=== PATIENT | male | born 1935 | race Caucasian/White ===

== ENCOUNTER 2018-02-11 10:25 | Emergency (ER) | payer MEDICARE ==
[2018-02-11] MEDS ORDERED: IPRATROPIUM/ALBUTEROL SULFATE 3 ML AMPUL.NEB NEB ONE (11:29)
--- NOTE | 2018-02-11 11:42 | ED Physician Documentation ---
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 in [facility]. . pt appears lethargic and inconsistent in answers. pcp=DR [facility]. Family also says dietary very non compliant plus smokes 2-4 pk cigs per day eats candy bars w/diabetes along w/food non compliant. pt says no bm for 2-3 days. family relates has eaten 12 glazed donuts and one time and eats up to 3-4 candy bars instead of regular diabetic diet-then takes xs insulin to try cover. seldom eats diabetic like diet Onset: days ago (2) Last known Well Date: 01/30/18 Last Known Well Time: 12:12 Last known Well Code/Unknown Code: Unknown (CHRONIC DETERIORATION-IMPOSSIBLE TO DETERMINE EXACT TIME-DATE AND TIME A WILD ESTIMATE. PT HAD CHRONIC PROGRESSIVE DETERIORATION OVER MONTHS/YEARS) Character of Altered Mental Status: confused (slightly-perhaps xs narcotic. family says pt gave xs oxycodone and she was adm [facility] due to overdose) Context: infection (chronic cellulitis legs along w/ diabetic ner) Cognition is Usually: alert but confused Associated Symptoms: trouble breathing (chronic dt copd), abdominal pain. denies: nausea, vomiting - ROS EYES/ENT: problems with vision, other (as above) CVS/RESP: shortness of breath, cough GI/: abdominal pain MS/SKIN/LYMPH: joint pain, leg swelling, rash NEURO/PSYCH: headache - PAST HX Past History: confusion, diabetes Type 1, other (copd htn chf cellulitis legs -chronic) Allergies/Adverse Reactions: Allergies Allergy/AdvReac Type Severity Reaction Status Date / Time Iodinated Contrast Media - Allergy Mild Verified 02/11/18 11:12 IV Dye [IV Dye, Iodine Containing Contrast ] enoxaparin sodium Allergy Verified 02/11/18 11:12 [From Lovenox] Home Medications: Ambulatory Orders Medication Instructions Recorded Levothyroxine Sodium [Synthroid] 75 mcg PO D 05/28/13 Mirtazapine 15 mg PO D 05/28/13 Multivit-Min/FA/Lycopene/Lut 1 each PO 05/28/13 [Centrum Silver Tablet] Nystatin Powder [Nystop] 0 gm TP 05/28/13 Carbidopa/Levodopa [Carbidopa-Levo 1 tab PO 02/11/18 25-100 mg Odt] Gabapentin 100 mg PO 02/11/18 Insulin Regular, Human [Humulin R 02/11/18 U-500] Melatonin 3 mg PO D 02/11/18 Pantoprazole Sodium [Protonix] 40 mg PO 02/11/18 Prednisone 10 mg PO 02/11/18 Sertraline HCl [Zoloft] 100 mg PO D 02/11/18 Tiotropium [place] [Spiriva] 18 mcg INH 02/11/18 - SOCIAL HX Smoking History: greater than 1 pack/day Alcohol Use: none (prev very heavy per family) Drug Use: other (non compliant w/ percocet for joint leg pain) - FAMILY HX Family History: none - VITAL SIGNS Vital Signs: Vital Signs Temp Pulse Resp BP Pulse Ox 97.4 F L 68 28 H 181/102 95 02/11/18 10:26 02/11/18 10:26 02/11/18 10:26 02/11/18 10:26 02/11/18 10:26 - REVIEWED ASSESSMENTS Nursing Assessment Reviewed: Yes Vitals Reviewed: Yes ED Results Lab/Radiology - Lab Results Lab Results: Lab Results 02/11/18 02/11/18 12:05 12:05 WBC 7.80 K/ul K/ul (4.00-12.00) RBC 3.84 M/ul L M/ul (3.90-5.20) Hgb 11.9 g/dL L g/dL (12.0-18.0) Hct 36.0 % L % (37.0-53.0) MCV 93.6 fl fl (80.0-100.0) MCH 31.0 pg pg (28.0-34.0) MCHC 33.1 g/dL g/dL (30.0-36.0) RDW 15.1 % H % (11.3-14.3) Plt Count 233 K/mm3 K/mm3 (130-400) Neut % (Auto) 81.2 % H % (39.0-79.0) Lymph % (Auto) 10.8 % L % (16.0-50.0) [place] % (Auto) 4.6 % % (0.0-11.0) Eos % (Auto) 0.8 % % (0.0-6.8) Baso % (Auto) 0.5 (0.0-1.5) Neut # (Auto) 6.3 # k/uL # k/uL (1.4-7.7) Lymph # (Auto) 0.8 # k/uL # k/uL (0.6-4.0) [place] # (Auto) 0.4 # k/uL # k/uL (0.0-0.9) Eos # (Auto) 0.1 # k/uL # k/uL (0.0-0.6) Baso # (Auto) 0.0 # k/uL # k/uL (0.0-0.5) Reactive Lymphs % 2.0 % % (0.0-5.0) Reactive Lymphs # 0.2 # k/uL # k/uL (0.0-0.8) Sodium 140 mmol/L mmol/L (136-145) Potassium 4.6 mmol/L mmol/L (3.5-5.1) Chloride 100 mmol/L mmol/L (98-107) Carbon Dioxide 25 mmol/L mmol/L (22-30) BUN 51 mg/dL H mg/dL (9-20) Creatinine 1.80 mg/dL H mg/dL (0.66-1.25) Estimated Creat Clear 53 Est GFR ( Amer) 47 L (60 - ) Est GFR (Non-Af Amer) 39 L (60 - ) Glucose 216 mg/dL H mg/dL (74-106) Calcium 8.8 mg/dL mg/dL (8.4-10.2) Total Bilirubin 1.2 mg/dL mg/dL (0.2-1.3) AST 36 U/L U/L (15-46) ALT 35 U/L U/L (13-69) Alkaline Phosphatase 111 U/L U/L (38-126) Total Protein 7.7 g/dL g/dL (6.3-8.2) Albumin 4.0 g/dL g/dL (3.5-5.0) - Radiology Radiology Impressions: CXR CONGESTION NO APPARENT ACUTE PROCESS. ABD REV XS GAS [id number] PT HAS HAD 2 LARGE BMS SINCE IN ED - Orders Orders: ED Orders Category Date Time Status IV Started NOW Care 02/11/18 12:25 Active ABD SERIES PA CHEST [RAD] Stat Exams 02/11/18 Completed CBC/PLATELET/DIFF Routine Lab 02/11/18 12:05 Completed CMP Routine Lab 02/11/18 12:05 Completed DRUG SCREEN URINE MEDICAL ONLY Routine Lab 02/11/18 Ordered URINALYSIS Routine Lab 02/11/18 Ordered Acetaminophen [Tylenol Extra Strength] Med 02/11/18 14:51 Discontinued 500 mg .ROUTE .STK-MED ONE Ipratropium/Albuterol Sulfate [Duoneb] Med 02/11/18 11:29 Discontinued 3 ml NEB NOW ONE EKG WITH COMPARISON Stat Ther 02/11/18 Ordered Altered Mental Status Physical - Physical Exam General Appearance: moderate distress, lethargic Neuro/Psych: headache alert Peripheral Exam: motor nml, sensation nml, reflexes nml, other (marked pain w/ palp cellulitis lower legs-no marked edema) HEENT: SACHA, EOM's intact Respiratory: wheezes, rales, rhonchi. No: breath sounds normal CVS: reg rate & rhythm, heart sounds normal Abdomen: tenderness. No: non-tender, no distention Skin: warm/dry, normal color Extremities: normal range of motion (no pronator drift equal hand greige mender moves lower ext equally but weak difficult to move by self). No: non-tender Discharge Clincal Impression: ADVANCED COPD , MEDS NONCOMPLIANCE, CONSTIPATION RESOLVED, MARKEDLY UNCONTROLLED DIABETIC DIET, PERIPHERAL VASCULAR DISEASE, SEVERE DIABETIC NEUROPATHY AND [place] DM, LOWER ETREMITY CHRONIC CELLULITIS, RECURRENT AMS SECONDARY TO MEDS NON COMP Referrals: Prashant Sy MD [Primary Care Provider] - 2 Days Comments: [facility] DECLINED ADMISSION-REC [facility] PATIENT. OFFERED ADM OBS HERE W/FURTHUR DISPOSITION =- PT DECLINED Condition: Fair Disposition: 01 HOME, SELF-CARE Decision to Admit: NO Decision Time: 15:28
[2018-02-11 12:26] LABS: BASOPHILS % 0.5 (0.0-1.5); EOSINOPHILS % 0.8 % (0.0-6.8); MEAN CORPUSCULAR VOLUME 93.6 fl (80.0-100.0); MONOCYTES % 4.6 % (0.0-11.0); NEUTROPHILS # 6.3 # k/uL (1.4-7.7)
--- NOTE | 2018-02-11 13:19 | Diagnostic Imaging Report ---
ZEYNEP HECK [facility] [address] [facility].[address] [address] Report Submission Date: Feb 11, 2018 1:16:52 PM CDT Patient Study Name: KEILA WARNER Date: Feb 11, 2018 12:34:08 PM CDT Modality Type: DX Gender: M Description: ABDOMEN,CHEST : 37 Institution: [facility] Physician: ZEYNEP HECK Chest and abdomen Clinical history short of breath and constipation Technique supine abdomen and upright chest Findings: Large amount of retained fecal material in the colon. Lumbar spondylosis is present. No mass or free air is seen. Arthritic changes are present in the hips. The heart is enlarged. The aorta is tortuous. No acute infiltrate is seen. The lung knight are hyperinflated. Surgical clips of cholecystectomy are present in the right upper quadrant. Impression: Hyperinflation Cardiomegaly Aortic atherosclerosis Cholecystectomy Constipation Electronically signed on Feb 11, 2018 1:16:52 PM CDT by: Max MONSALVE
[2018-02-11] MEDS ORDERED: ACETAMINOPHEN 500 MG TABLET ONE (14:51)
[2018-02-11] MEDS ORDERED: ACETAMINOPHEN 500 MG TABLET PO ONE (14:55)
[2018-02-11 16:55] VITALS: BP 153/73
[2018-02-12 07:22] LABS: OCCULT BLOOD,URINE TRACE-LYSED (NEGATIVE); PH URINE 5.5 (5.0 - 8.0)
[2018-02-12 07:23] LABS: CANNABINOIDS NEGATIVE ng/mL (< 50); METHYLENEDIOXYMETHAMPHETAMINE NEGATIVE ng/mL (<500)
== END 2018-02-11 15:00 | disposition home or self-care (01) ==
LOC: ED 10:25
DX: J44.9 Chronic obstructive pulmonary disease, unspecified (principal); E11.65 Type 2 diabetes mellitus with hyperglycemia; E11.40 Type 2 diabetes mellitus with diabetic neuropathy, unspecified; L03.116 Cellulitis of left lower limb; Z91.14 Patient's other noncompliance with medication regimen
CPT/HCPCS: 74022; 80053; 81002; 85025; 93005; G0481; 80377; 94640; 99283; 99284; S1016

== ENCOUNTER 2018-11-14 20:32 | Inpatient (IN) | payer MEDICARE ==
[2018-11-14] MEDS ORDERED: 0.9 % SODIUM CHLORIDE 1,000 ML IV SCH (21:00)
--- NOTE | 2018-11-14 21:07 | ED Physician Documentation ---
Fall - HISTORIAN Historian: patient, child - [facility] Chief Complaint: Fall Additional Information: TANGLED UP IN WALKER FELL W/ LAC RT LOWER LEG PLUS HYPOTENSION AND SYNCOPE IN AMBULANCE Onset: just prior to arrival Where: home Context: lost balance (entangled in walker) r: mild, moderate Associated Symptoms:: no loss of consciousness Location of Pain/Injury: lower extremity. denies: head, neck, face, chest, abdomen, upper back, mid back, lower back Injury to Right Extremity: leg (lac mikd calf lateral) Injury to Left Extremity: none - ROS CONST: other (falls occasionally) NEURO: depression MS/SKIN/LYMPH: denies: weakness, numbness, neck pain, back pain, ankle swelling, leg swelling EYES/ENT: none CVS/RESP: denies: shortness of breath GI/: denies: problems urinating, nausea, vomiting - PAST HX Past History: diabetes Type 1, other (chf depression lo thryoid gerd copd). denies: cardiac disease Allergies/Adverse Reactions: Allergies Allergy/AdvReac Type Severity Reaction Status Date / Time Iodinated Contrast- Oral and Allergy Mild Verified 11/14/18 22:41 IV Dye [IV Dye, Iodine Containing Contrast ] enoxaparin sodium Allergy Verified 11/14/18 22:41 [From Lovenox] IV Dye, Iodine Containing Allergy Mild Uncoded 11/14/18 22:41 Contrast Home Medications: Ambulatory Orders Medication Instructions Recorded Levothyroxine Sodium [Synthroid] 75 mcg PO D 05/28/13 Mirtazapine 15 mg PO D 05/28/13 Multivit-Min/FA/Lycopene/Lut 1 each PO 05/28/13 [Centrum Silver Tablet] Nystatin Powder [Nystop] 0 gm TP 05/28/13 Carbidopa/Levodopa [Carbidopa-Levo 1 tab PO 02/11/18 25-100 mg Odt] Insulin Regular, Human [Humulin R 02/11/18 U-500] Melatonin 3 mg PO D 02/11/18 Pantoprazole Sodium [Protonix] 40 mg PO 02/11/18 Prednisone 10 mg PO 02/11/18 Sertraline HCl [Zoloft] 100 mg PO D 02/11/18 Tiotropium [place] [Spiriva] 18 mcg INH 02/11/18 - SOCIAL HX Smoking History: non-smoker, less than 1 pack/day Alcohol Use: none Drug Use: none - FAMILY HX Family History: no significant history - VITAL SIGNS Vital Signs: Vital Signs Temp Pulse Resp BP Pulse Ox 153/73 02/11/18 16:52 - REVIEWED ASSESSMENTS Nursing Assessment Reviewed: Yes Vitals Reviewed: Yes Procedures Wound Location: lower extremity Wound's Depth, Shape: superficial, flap Wound Explored: LAC APPROX 5 IN LONG W/FLAP Betadine Prep?: Yes Suture Size/Type: 4:0 Layer Closure?: No Sterile Dressing Applied?: Yes Splint Applied?: No Sling Applied?: No Progress - Results/Orders Results/Orders: PDT BLOOD PRESURE STABILIZED AROUND 100+ SYSTOLIC AFTER IV'S. HE BECAME MORE ALERT AND CONVERSIVE. HE HAD APPARENT SYNCOPE IN AMBULANCE AND AGAIN WHEN WE TRANS TO COMMODE HIS BP ON ARRIVAL WAS 50'S ON ARRIVAL GRADUALLY INCREASING W/ FLUIDS. HE IS ON SEVERAL MEDS BUT WE DO NOT KNOW DOSAGE THERE FORE WILL HOLD TILL FAMILY CAN BRING THEM IN IN THE AM ED Results Lab/Radiology - Orders Orders: ED Orders Category Date Time Status CBC/PLATELET/DIFF Routine Lab 11/14/18 Ordered CMP Routine Lab 11/14/18 Ordered URINALYSIS Routine Lab 11/14/18 Ordered 0.9 % Sodium Chloride [Normal Saline] 1,000 ml Med 11/14/18 21:00 Ordered IV 1T Oxygen Daily Oxygen 11/14/18 21:00 Ordered EKG WITH COMPARISON Stat Ther 11/14/18 Ordered EKG WITH COMPARISON Stat Ther 11/14/18 Stop Req Fall Physical Exam - Physical Exam General Appearance: alert (but lethargic reported locon way into ed-EMS), moderate distress Head: non-tender, no swelling, no obvious injury Neck: non-tender, painless ROM, trachea midline Eye: SACHA, EOMI ENT: nml external inspection Resp/CVS: chest non-tender, no ecchymosis, breath sounds nml, no resp. distress, heart sounds nml. No: rib tenderness, subcutaneous emphysema Abdomen: soft, non-tender Neuro: oriented x3, sensation nml, motor nml, mood/affect nml, depressed mo od/affect, other (has had noct timemeds plushypotensive). No: unsteady gait (pt got syncopal when up to commode dt hypotension) Skin: color nml, no rash. No: cyanosis, diaphoresis, pallor, ecchymosis, skin rash Extremities: other (4 inch tear lac rt lower lat leg lmid calf level) - [place] Coma Score Eyes Open: To Voice Motor: Localizes to Pain Discharge Clincal Impression: HYPOTENSION W/ ORTHOSTATIC SYNCOPE, HYPOTENSION W/ ORTHOSSTATIC SYNCOPE, LACERATION RT LOWER LAT LEG, HX PREV DVT RT LEG, HX DM CHF DEPRESSION HYPOTHRYOID , HX GERD COPD Referrals: Prashant Sy MD [Primary Care Provider] - 2 Days Comments: DOSAGE NOT AVAILABLE-FAMILY WILL BRING THEM IN EARLY AM. CALLED DR RANDHAWA FOR ADM ORDERS Condition: Fair Disposition: 02 XFER [facility]OS[facility] Decision to Admit: [id number] Decision Time: 00:07
[2018-11-14] MEDS ORDERED: LIDOCAINE HCL 1% PF 300MG/30ML VIAL ONE (22:03)
[2018-11-14 22:12] LABS: BASOPHILS % 0.2 (0.0-1.5); EOSINOPHILS % 2.5 % (0.0-6.8); MEAN CORPUSCULAR HEMOGLOBIN 33.1 pg (28.0-34.0); MONOCYTES % 5.7 % (0.0-11.0); NEUTROPHILS # 7.1 # k/uL (1.4-7.7)
[2018-11-14 22:16] LABS: eGFR (Non-African) 25
[2018-11-14] MEDS ORDERED: LIDOCAINE HCL 1% PF 300MG/30ML VIAL IJ ONE (22:47)
[2018-11-15] MEDS ORDERED: ALBUTEROL 90MCG/PUFF INHALER IH PRN ×2 (00:47→14:17)
[2018-11-15 01:12] VITALS: BMI 36.1
[2018-11-15] MEDS: 0.9 % SODIUM CHLORIDE 1,000 ML IV SCH ×2 (01:36→11:14)
[2018-11-15] MEDS: oxyCODONE/ACETAMINOPHEN 5/325 TABLET PO PRN ×3 (02:45→18:31)
[2018-11-15] MEDS ORDERED: APIXABAN 2.5 MG TABLET PO ONE (07:36)
[2018-11-15 08:17] LABS: MEAN CORPUSCULAR HEMOGLOBIN 32.9 pg (28.0-34.0)
[2018-11-15] MEDS: APIXABAN 2.5 MG TABLET PO SCH ×2 (08:53→20:52)
[2018-11-15] MEDS ORDERED: PATIENT OWN MED 1 EACH EACH SQ ONE (11:30)
[2018-11-15] MEDS: INSULIN REGULAR HUMAN SQ SCH (17:23)
[2018-11-15] MEDS: GABAPENTIN 300 MG CAPSULE PO SCH (17:24)
[2018-11-15] MEDS: IPRATROPIUM/ALBUTEROL SULFATE 3 ML AMPUL.NEB NEB PRN (17:38)
[2018-11-15 18:27] LABS: BASOPHILS % 0.3 (0.0-1.5); EOSINOPHILS % 2.8 % (0.0-6.8); MEAN CORPUSCULAR HEMOGLOBIN 32.8 pg (28.0-34.0); MONOCYTES % 6.5 % (0.0-11.0)
[2018-11-15] MEDS: ALPRAZOLAM 0.5 MG TABLET PO PRN (18:32)
[2018-11-15] MEDS: BUDESONIDE 0.5MG/2ML AMPUL.NEB NEB SCH (20:23)
--- NOTE | 2018-11-15 20:53 | Diagnostic Imaging Report ---
CHRISTY BARTON [facility] [address] [facility] [address] [address] Report Submission Date: Nov 15, 2018 8:18:[address] REPORTER Patient Study Name: KEILA WARNER Date: Nov 15, 2018 7:25:[address] REPORTER Modality Type: DX Gender: M Description: CHEST 1V : 37 Institution: [facility] Physician: CHRISTY BARTON Portable view chest Clinical history: Short of air Findings: The heart size upper limits of normal. There is mild pulmonary the venous congestion. No pleural effusion, pneumothorax or alveolar consolidation. Impression: Mild chf Electronically signed on Nov 15, 2018 8:18:[address] REPORTER by: Sergo MONSALVE
[2018-11-16] MEDS: IPRATROPIUM/ALBUTEROL SULFATE 3 ML AMPUL.NEB NEB PRN (00:30)
[2018-11-16] MEDS ORDERED: FUROSEMIDE 40 MG/4 ML VIAL IVP ONE (01:20)
[2018-11-16] MEDS: 0.9 % SODIUM CHLORIDE 1,000 ML IV SCH (01:56)
[2018-11-16] MEDS: oxyCODONE/ACETAMINOPHEN 5/325 TABLET PO PRN ×4 (03:07→21:20)
[2018-11-16 08:08] LABS: BASOPHILS % 0.3 (0.0-1.5); EOSINOPHILS % 1.8 % (0.0-6.8); MEAN CORPUSCULAR HEMOGLOBIN 32.5 pg (28.0-34.0); MONOCYTES % 7.6 % (0.0-11.0); NEUTROPHILS # 4.4 # k/uL (1.4-7.7)
[2018-11-16 08:30] LABS: eGFR (Non-African) 53
[2018-11-16] MEDS: GABAPENTIN 300 MG CAPSULE PO SCH ×3 (09:33→18:00)
[2018-11-16] MEDS: APIXABAN 2.5 MG TABLET PO SCH ×2 (09:33→20:14)
[2018-11-16] MEDS: HYDROCHLOROTHIAZIDE 25 MG TABLET PO SCH (09:33)
[2018-11-16] MEDS: TAMSULOSIN HCL 0.4 MG CAP.ER.24H PO SCH (09:33)
[2018-11-16] MEDS: CEPHALEXIN 250 MG CAPSULE PO SCH (09:33)
[2018-11-16] MEDS: INSULIN REGULAR HUMAN 150 UNIT SQ SCH (09:34)
[2018-11-16] MEDS: LEVOTHYROXINE SODIUM 112 MCG PO SCH (09:49)
[2018-11-16] MEDS: BUDESONIDE 0.5MG/2ML AMPUL.NEB NEB SCH ×2 (10:37→21:27)
[2018-11-16] MEDS ORDERED: INSULIN REGULAR HUMAN SQ SCH (12:00)
[2018-11-16] MEDS: METOPROLOL SUCCINATE 25 MG PO SCH (12:23)
[2018-11-16] MEDS: METOPROLOL TARTRATE 25 MG TABLET PO SCH ×3 (12:23→20:23)
--- NOTE | 2018-11-16 15:54 | History and Physical Report ---
History of Present Illnes - History of Present Illness Reason for Visit: Fall History of Present Illness: THIS H&P WAS DONE 11-15-18. Patient was admitted observation after ER provider called me to say patient had come in with a fall out of bed and sustained a laceration of his lower leg. AFter is was repaired, he got up to urinate and passed out. BP was in the 50's. AFter an IV bolus it increased to 120's. However patient was too weak to go home yet. Upon my arrival, I reviewed his record. In fact he had a syncopal episode in the ambulance and in the ER. HGB was 8.4. Cr was 2.62. Patient told me he was [facility] a day [facility] two before and "labs were normal." I called and his HGB was 10 and Cr 1.6. He had also just been released from [facility] this week also. Patient goes to [facility] and sees Dr. Sy for his care. Granddaughter reports he was diagnosed with a DVT about 3 weeks ago and is on Eliquis. 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 PUNCH: Other (Parkinson's) Musculoskeletal: Osteoarthritis (Chronic leg pain) Endocrine: Diabetes ("resistant" to insulin), Hypothyroidism - Past Surgical History Past Surgical History: None - Past Family History Father Family History: Mother Family History: - Past Social History Smoke: Quit Alcohol: None Drugs: None Lives: Alone - Health Maintenance Health Maintenance: Influenza Vaccine, Pneumococcal Vaccine Influenza Vaccine: Current for this Influenza Season Pneumonia Vaccine: Yes Resuscitation Status: Resusciation Status Resuscitation Status Full Code Review of Systems - Review of Systems Constitutional: negative: Fever, Weakness Eyes: negative: vision change ENT: negative: Ear Pain, Nose Discharge Respiratory: negative: Cough Cardiovascular: negative: Chest Pain, Palpitations Gastrointestinal: negative: Nausea, Vomiting, Abdominal Pain Genitourinary: negative: Dysuria Musculoskeletal: Leg Pain Skin: Other (Sutured incision RLE). negative: Rash Neurological: Weakness, Incoordination - Medications/Allergies Allergies/Adverse Reactions: Allergies Allergy/AdvReac Type Severity Reaction Status Date / Time Iodinated Contrast- Oral and Allergy Mild Verified 11/14/18 22:41 IV Dye [IV Dye, Iodine Containing Contrast ] enoxaparin sodium Allergy Unknown Verified 11/15/18 08:30 [From Lovenox] Home Medications: Home Medications Albuterol Sulfate [Proair HFA] 2 puff IH Q6 PRN 11/15/18 Alprazolam [Xanax] 0.25 mg PO TID PRN 11/15/18 Apixaban [Eliquis] 5 mg PO BID 11/15/18 Arformoterol Tartrate [Brovana] 15 mcg NEB BID 11/15/18 Aspirin [Mane] 81 mg PO D 11/15/18 Atorvastatin Calcium 80 mg PO D 11/15/18 Budesonide [Pulmicort] 0.5 mg NEB BID 11/15/18 Cephalexin [Keflex] 500 mg PO D 11/15/18 Cholecalciferol (Vitamin D3) [Vitamin D3] 1,000 unit PO BID 11/15/18 Cyanocobalamin (Vitamin B-12) [Vitamin B-12] 1,000 mcg PO D 11/15/18 Cyanocobalamin [Vitamin B-12] 1,000 mcg IM MONTH 11/15/18 Docusate Sodium [Colace] 100 mg PO BID PRN 11/15/18 Duloxetine HCl 60 mg PO D 11/15/18 Escitalopram Oxalate [Lexapro] 5 mg PO D 11/15/18 Gabapentin 300 mg PO TID 11/15/18 Hydrochlorothiazide 12.5 mg PO D 11/15/18 Insulin Regular, Human [Humulin R U-500 Kwikpen] 75 unit SQ 1700 11/15/18 Insulin Regular, Human [Humulin R U-500 Kwikpen] 95 unit SQ 1200 11/15/18 Insulin Regular, Human [Humulin R U-500 Kwikpen] 150 unit SQ 0730 11/15/18 Ipratropium/Albuterol Sulfate [Duoneb] 3 ml IH QID PRN 11/15/18 Levothyroxine Sodium 112 mcg PO D 11/15/18 Lisinopril 5 mg PO BID 11/15/18 Metoprolol Succinate [Toprol Xl] 25 mg PO D 11/15/18 Omeprazole 20 mg PO BID 11/15/18 Ondansetron HCl Rapdis [Zofran ODT] 4 mg SL Q8 PRN 11/15/18 Oxycodone HCl/Acetaminophen [Oxycodone-Acetaminophen 10-325] 1 tab PO Q8 PRN 11/15/18 Pnv No.121/Iron/Folic Acid [ Multivitamin Tablet] 1 tab PO D 11/15/18 Potassium Chloride 10 meq PO D 11/15/18 Tamsulosin HCl 0.4 mg PO D 11/15/18 Torsemide 50 mg PO D 11/15/18 Torsemide 100 mg PO D 11/15/18 Current Inpatient Medications: Current Inpatient Medications Albuterol Sulfate (Ventolin Hfa) 2 puff IH Q6H PRN PRN Reason: SOB Albuterol Sulfate (Ventolin Hfa) 2 puff IH Q6 PRN PRN Reason: Wheezing Albuterol/Ipratropium (Duoneb) 3 ml NEB QID PRN PRN Reason: Wheezing Last Admin: 11/16/18 00:30 Dose: 3 ml Alprazolam (Xanax) 0.25 mg PO TID PRN PRN Reason: Anxiety Last Admin: 11/15/18 18:32 Dose: 0.25 mg Budesonide (Pulmicort) 0.5 mg NEB BID [facility] Last Admin: 11/16/18 10:37 Dose: 0.5 mg Cephalexin (Keflex) 500 mg PO DAILY [facility] Last Admin: 11/16/18 09:33 Dose: 500 mg Gabapentin (Neurontin) 300 mg PO TID [facility] Last Admin: 11/16/18 12:24 Dose: 300 mg Hydrochlorothiazide (Hydrodiuril) 12.5 mg PO DAILY [facility] Last Admin: 11/16/18 09:33 Dose: 12.5 mg Metoprolol Tartrate (Lopressor) 25 mg PO BID [facility] Last Admin: 11/16/18 12:23 Dose: 25 mg Miscellaneous (Insulin Regular, Human [Humulin R U-500 Kwikpen]) 75 unit SQ 1700 [facility] Last Admin: 11/15/18 17:23 Dose: Not Given Miscellaneous (Insulin Regular, Human [Humulin R U-500 Kwikpen]) 95 unit SQ 1200 [facility] Last Admin: 11/16/18 12:27 Dose: Not Given Miscellaneous (Insulin Regular, Human [Humulin R U-500 Kwikpen]) 150 unit SQ 0730 [facility] Last Admin: 11/16/18 09:34 Dose: 150 unit Miscellaneous (Levothyroxine Sodium [Levothyroxine Sodium]) 112 mcg PO D [facility] Last Admin: 11/16/18 09:49 Dose: 112 mcg Miscellaneous (Metoprolol Succinate [Toprol Xl]) 25 mg PO D [facility] Last Admin: 11/16/18 12:23 Dose: Not Given Miscellaneous (Chem Sticks) 1 each MC CHEMQID [facility] Last Admin: 11/16/18 12:23 Dose: 1 each Oxycodone/Acetaminophen (Percocet 5-325 Mg Tablet) 2 each PO Q8 PRN PRN Reason: Severe Pain Last Admin: 11/16/18 13:11 Dose: 2 each Tamsulosin HCl (Flomax) 0.4 mg PO D [facility] Last Admin: 11/16/18 09:33 Dose: 0.4 mg Exam - Exam Vital Signs: Vital Signs (72 hours) 11/14/18 11/15/18 11/15/18 20:32 00:17 00:44 Temperature 98.1 F 97.5 F L Pulse Rate Pulse Rate [ Apical] Pulse Rate [ 106 H 100 H 107 H Left Pulse ox] Pulse Rate [ Right] Respiratory 14 20 18 Rate Blood Pressure 72/39 113/51 128/50 [Left Arm] Blood Pressure [Right Arm] O2 Sat by Pulse 91 L 96 94 Oximetry 11/15/18 11/15/18 11/15/18 00:47 02:00 04:00 Temperature 97.5 F L Pulse Rate 107 H 101 H 104 H Pulse Rate [ Apical] Pulse Rate [ 107 H Left Pulse ox] Pulse Rate [ Right] Respiratory 18 Rate Blood Pressure 128/50 [Left Arm] Blood Pressure 175/79 [Right Arm] O2 Sat by Pulse 94 93 Oximetry 11/15/18 11/15/18 11/15/18 06:00 08:00 08:46 Temperature 98.2 F 97.5 F L Pulse Rate 99 H 98 H Pulse Rate [ Apical] Pulse Rate [ 82 Left Pulse ox] Pulse Rate [ 99 H Right] Respiratory 16 20 Rate Blood Pressure 136/62 [Left Arm] Blood Pressure 175/79 117/55 [Right Arm] O2 Sat by Pulse 95 98 Oximetry 11/15/18 11/15/18 11/15/18 09:40 09:41 10:40 Temperature Pulse Rate 109 H Pulse Rate [ Apical] Pulse Rate [ 102 H Left Pulse ox] Pulse Rate [ Right] Respiratory 20 Rate Blood Pressure 150/68 [Left Arm] Blood Pressure [Right Arm] O2 Sat by Pulse 98 2 L Oximetry 11/15/18 11/15/18 11/15/18 12:00 13:49 14:00 Temperature 97.7 F Pulse Rate 108 H 110 H Pulse Rate [ Apical] Pulse Rate [ Left Pulse ox] Pulse Rate [ 105 H Right] Respiratory 20 Rate Blood Pressure [Left Arm] Blood Pressure 134/50 [Right Arm] O2 Sat by Pulse 95 95 Oximetry 11/15/18 11/15/18 11/15/18 15:57 17:54 17:57 Temperature Pulse Rate 109 H 127 H Pulse Rate [ Apical] Pulse Rate [ Left Pulse ox] Pulse Rate [ Right] Respiratory 24 Rate Blood Pressure [Left Arm] Blood Pressure [Right Arm] O2 Sat by Pulse 98 Oximetry 11/15/18 11/15/18 11/15/18 18:00 20:00 20:15 Temperature 98.3 F Pulse Rate 110 H Pulse Rate [ Apical] Pulse Rate [ 130 H Left Pulse ox] Pulse Rate [ Right] Respiratory 24 24 Rate Blood Pressure 147/71 [Left Arm] Blood Pressure [Right Arm] O2 Sat by Pulse 98 Oximetry 11/15/18 11/16/18 11/16/18 22:00 00:00 02:00 Temperature 98.0 F 100.1 F H Pulse Rate 109 H 134 H Pulse Rate [ Apical] Pulse Rate [ Left Pulse ox] Pulse Rate [ 94 H 126 H Right] Respiratory 20 32 H Rate Blood Pressure [Left Arm] Blood Pressure 112/35 147/72 [Right Arm] O2 Sat by Pulse 94 92 Oximetry 11/16/18 11/16/18 11/16/18 02:06 02:07 02:30 Temperature Pulse Rate 135 H Pulse Rate [ 119 H Apical] Pulse Rate [ Left Pulse ox] Pulse Rate [ Right] Respiratory 32 H 26 H Rate Blood Pressure [Left Arm] Blood Pressure 140/58 [Right Arm] O2 Sat by Pulse 93 92 Oximetry 11/16/18 11/16/18 11/16/18 03:45 04:00 06:00 Temperature 97.7 F Pulse Rate 99 H 90 Pulse Rate [ 96 H Apical] Pulse Rate [ Left Pulse ox] Pulse Rate [ 96 H Right] Respiratory 18 Rate Blood Pressure [Left Arm] Blood Pressure 138/60 [Right Arm] O2 Sat by Pulse 97 Oximetry 11/16/18 11/16/18 11/16/18 06:17 08:00 09:30 Temperature 96.7 F L Pulse Rate 104 H Pulse Rate [ Apical] Pulse Rate [ Left Pulse ox] Pulse Rate [ 110 H Right] Respiratory 24 22 Rate Blood Pressure [Left Arm] Blood Pressure 127/48 [Right Arm] O2 Sat by Pulse 82 L Oximetry 11/16/18 11/16/18 11/16/18 10:00 12:00 13:25 Temperature 97.7 F Pulse Rate 124 H 94 H Pulse Rate [ Apical] Pulse Rate [ 52 L Left Pulse ox] Pulse Rate [ Right] Respiratory 22 24 Rate Blood Pressure 138/59 [Left Arm] Blood Pressure [Right Arm] O2 Sat by Pulse 95 96 Oximetry 11/16/18 14:00 Temperature Pulse Rate 88 Pulse Rate [ Apical] Pulse Rate [ Left Pulse ox] Pulse Rate [ Right] Respiratory Rate Blood Pressure [Left Arm] Blood Pressure [Right Arm] O2 Sat by Pulse 96 Oximetry General: Alert, Oriented to Person, Oriented to Place, Oriented to Time, Cooperative HEENT: Atraumatic, PERRLA, EOMI, Mouth Mucous membr. moist/[place] Neck: Normal Range of Motion Lungs: Rhonchi Cardiovascular: Regular rate Abdomen: Normal bowel sounds Integumentary: Other (RLE incision sutured.) Extremities: No edema Neurological: Generalized Weakness Psych/Mental Status: Mental status NL, Mood NL, Appropriate Affect, Intact Judgment - Laboratory Results Laboratory Results: Laboratory Results 11/14/18 11/14/18 11/15/18 21:45 21:45 08:10 WBC 9.00 7.20 RBC 2.53 L 2.63 L Hgb 8.4 L 8.6 L Hct 25.1 L 26.2 L MCV 99.0 100.0 MCH 33.1 32.9 MCHC 33.3 33.0 RDW 12.4 12.5 Plt Count 215 208 Neut % (Auto) 78.9 Lymph % (Auto) 12.7 L [place] % (Auto) 5.7 Eos % (Auto) 2.5 Baso % (Auto) 0.2 Neut # (Auto) 7.1 Lymph # (Auto) 1.1 [place] # (Auto) 0.5 Eos # (Auto) 0.2 Baso # (Auto) 0.0 Sodium 129 L Potassium 4.1 Chloride 96 L Carbon Dioxide 27 BUN 47 H Creatinine 2.62 H Estimated Creat Clear Est GFR ( Amer) 30 L Est GFR (Non-Af Amer) 25 L Glucose 130 H Calcium 8.2 L Total Bilirubin 0.2 AST 59 H ALT 22 Alkaline Phosphatase 99 NT-Pro-B Natriuret Pep Total Protein 6.1 L Albumin 3.3 L Stool Guaiac Test 11/15/18 11/15/18 11/15/18 08:10 18:05 18:05 WBC 9.10 RBC 2.71 L Hgb 8.9 L Hct 27.2 L MCV 100.0 MCH 32.8 MCHC 32.7 RDW 12.4 Plt Count 210 Neut % (Auto) 76.1 Lymph % (Auto) 14.3 L [place] % (Auto) 6.5 Eos % (Auto) 2.8 Baso % (Auto) 0.3 Neut # (Auto) 7.0 Lymph # (Auto) 1.3 [place] # (Auto) 0.6 Eos # (Auto) 0.3 Baso # (Auto) 0.0 Sodium 134 L Potassium 3.9 Chloride 99 Carbon Dioxide 28 BUN 47 H Creatinine 2.10 H Estimated Creat Clear 42 Est GFR ( Amer) 39 L Est GFR (Non-Af Amer) 32 L Glucose 179 H Calcium 7.7 L Total Bilirubin AST ALT Alkaline Phosphatase NT-Pro-B Natriuret Pep 582.3 H Total Protein Albumin Stool Guaiac Test 11/15/18 11/16/18 11/16/18 Unknown 07:50 07:50 WBC 6.50 RBC 2.51 L Hgb 8.2 L Hct 25.0 L MCV 99.0 MCH 32.5 MCHC 32.7 RDW 12.7 Plt Count 205 Neut % (Auto) 68.4 Lymph % (Auto) 21.9 [place] % (Auto) 7.6 Eos % (Auto) 1.8 Baso % (Auto) 0.3 Neut # (Auto) 4.4 Lymph # (Auto) 1.4 [place] # (Auto) 0.5 Eos # (Auto) 0.1 Baso # (Auto) 0.0 Sodium 134 L Potassium 4.0 Chloride 103 Carbon Dioxide 26 BUN 38 H Creatinine 1.36 H Estimated Creat Clear 65 Est GFR ( Amer) > 60 Est GFR (Non-Af Amer) 53 L Glucose 139 H Calcium 7.9 L Total Bilirubin AST ALT Alkaline Phosphatase NT-Pro-B Natriuret Pep Total Protein Albumin Stool Guaiac Test Negative Assessment/Plan - Assessment/Plan (1) Anemia Status: Acute Current Visit: Yes Qualifiers: Anemia type: unspecified type Qualified Code(s): D64.9 - Anemia, unspecified Plan: STool guiac is negative. Patient on Vit B12 already. Check iron. Hold eliquis for now. Use SCD's. (2) Hypotension Status: Acute Current Visit: Yes Qualifiers: Hypotension type: orthostatic hypotension Qualified Code(s): I95.1 - Orthostatic hypotension Plan: Much improved. Continue IVF. Watch closely. (3) Renal failure, acute on chronic Status: Acute Current Visit: Yes Qualifiers: Acute renal failure type: unspecified Chronic kidney disease stage: stage 3 (moderate) Qualified Code(s): N17.9 - Acute kidney failure, unspecified; N18.3 - Chronic kidney disease, stage 3 (moderate) Plan: Improved after IVF bolus for hypotension. Watch closely. (4) Fall Status: Acute Current Visit: Yes Qualifiers: Encounter type: sequela Qualified Code(s): W19.XXXS - Unspecified fall, sequela Plan: Will get PT/OT to see patient. Leg wound is sutured. WAtch. (5) Diabetes mellitus Status: Acute Current Visit: Yes Qualifiers: Diabetes mellitus type: type 2 Diabetes mellitus mcc insulin use: with mcc use Diabetes mellitus complication status: without complication Qualified Code(s): E11.9 - Type 2 diabetes mellitus without complications; Z79.4 - assisted (current) use of insulin Plan: Patient uses a U-500 insulin pen due to his insulin resistance according to his granddaughter. Continue. VTE Assessment - RISK FACTOR SCORE VTE RISK FACTOR SCORES: AGE OVER 60 YEARS
[2018-11-16] MEDS: INSULIN REGULAR HUMAN SQ SCH (18:00)
[2018-11-16] MEDS: ALPRAZOLAM 0.5 MG TABLET PO PRN (20:24)
[2018-11-17] MEDS: IPRATROPIUM/ALBUTEROL SULFATE 3 ML AMPUL.NEB NEB PRN (06:50)
[2018-11-17] MEDS: INSULIN REGULAR HUMAN 150 UNIT SQ SCH (07:47)
[2018-11-17 07:55] LABS: eGFR (Non-African) > 60
--- NOTE | 2018-11-17 08:26 | Inpatient Progress Note ---
Subjective - Required Recertification Statement I anticipate X number of days because-include discharge plan: 2 - Review of Systems Subjective: Patient seems to be working a little harder at breathing. He wants to go home. banking services officer contacted [facility] Garza about him going back - concern over out of Medicare days and not sure they want him as he is in and out so much. DR. Arora stopped his IVF yesterday and gave him lasix. He seemed to improve with that. CXR today shows possible infiltrate B. Objective - Exam Vitals and I&O: Vital Signs Temp 99.2 F 11/17/18 05:58 Pulse 52 L 11/17/18 05:58 Resp 28 H 11/17/18 05:58 BP 174/70 11/17/18 05:58 Pulse Ox 94 11/17/18 06:00 Intake & Output 11/16/18 11/16/18 11/17/18 11:59 23:59 11:59 Intake Total 1140 600 Output Total 1350 425 Balance 1140 -750 -425 Intake: Oral 1140 600 Output: Urine 1350 425 Other: Voiding Method Urinal Urinal Urinal # Voids 2 2 # Bowel Movements 1 1 General: Alert, Oriented to Person, Oriented to Place Lungs: Wheezes, Rhonchi Cardiovascular: Regular rate - Results Results: Laboratory Results WBC 6.50 K/ul (4.00-12.00) 11/16/18 07:50 RBC 2.51 M/ul (3.90-5.20) L 11/16/18 07:50 Hgb 8.2 g/dL (12.0-18.0) L 11/16/18 07:50 Hct 25.0 % (37.0-53.0) L 11/16/18 07:50 MCV 99.0 fl (80.0-100.0) 11/16/18 07:50 MCH 32.5 pg (28.0-34.0) 11/16/18 07:50 MCHC 32.7 g/dL (30.0-36.0) 11/16/18 07:50 RDW 12.7 % (11.3-14.3) 11/16/18 07:50 Plt Count 205 K/mm3 (130-400) 11/16/18 07:50 Neut % (Auto) 68.4 % (39.0-79.0) 11/16/18 07:50 Lymph % (Auto) 21.9 % (16.0-50.0) 11/16/18 07:50 [place] % (Auto) 7.6 % (0.0-11.0) 11/16/18 07:50 Eos % (Auto) 1.8 % (0.0-6.8) 11/16/18 07:50 Baso % (Auto) 0.3 (0.0-1.5) 11/16/18 07:50 Neut # (Auto) 4.4 # k/uL (1.4-7.7) 11/16/18 07:50 Lymph # (Auto) 1.4 # k/uL (0.6-4.0) 11/16/18 07:50 [place] # (Auto) 0.5 # k/uL (0.0-0.9) 11/16/18 07:50 Eos # (Auto) 0.1 # k/uL (0.0-0.6) 11/16/18 07:50 Baso # (Auto) 0.0 # k/uL (0.0-0.5) 11/16/18 07:50 Sodium 136 mmol/L (136-145) 11/17/18 05:40 Potassium 4.2 mmol/L (3.5-5.1) 11/17/18 05:40 Chloride 102 mmol/L (98-107) 11/17/18 05:40 Carbon Dioxide 32 mmol/L (22-30) H 11/17/18 05:40 BUN 31 mg/dL (9-20) H 11/17/18 05:40 Creatinine 1.21 mg/dL (0.66-1.25) 11/17/18 05:40 Estimated Creat Clear 73 11/17/18 05:40 Est GFR ( Amer) > 60 (60-) 11/17/18 05:40 Est GFR (Non-Af Amer) > 60 (60-) 11/17/18 05:40 Glucose 118 mg/dL (74-106) H 11/17/18 05:40 Calcium 8.4 mg/dL (8.4-10.2) 11/17/18 05:40 Iron (send out) 12 ug/dL (59-158) L 11/16/18 07:50 Total Bilirubin 0.2 mg/dL (0.2-1.3) 11/14/18 21:45 AST 59 U/L (15-46) H 11/14/18 21:45 ALT 22 U/L (13-69) 11/14/18 21:45 Alkaline Phosphatase 99 U/L (38-126) 11/14/18 21:45 NT-Pro-B Natriuret Pep 582.3 pg/mL (15.0-450.0) H 11/15/18 18:05 Total Protein 6.1 g/dL (6.3-8.2) L 11/14/18 21:45 Albumin 3.3 g/dL (3.5-5.0) L 11/14/18 21:45 Vitamin B12 1068 pg/mL (211-946) H 11/16/18 07:50 Folate 15.8 ng/mL (>4.50) 11/16/18 07:50 Stool Guaiac Test Negative (NEGATIVE) 11/15/18 Unknown Assessment/Plan - Assessment/Plan (1) Diabetes mellitus Status: Acute Current Visit: Yes Qualifiers: Diabetes mellitus type: type 2 Diabetes mellitus jail insulin use: with jail use Diabetes mellitus complication status: without complication Qualified Code(s): E11.9 - Type 2 diabetes mellitus without complications; Z79.4 - [employer] customer service (current) use of insulin Plan: Patient's appetite isn't as good with BS lower so will adjust insulin accordingly. (2) Pneumonia Status: Acute Current Visit: Yes Qualifiers: Pneumonia type: due to unspecified organism Laterality: bilateral Lung location: unspecified part of lung Qualified Code(s): J18.9 - Pneumonia, unspecified organism Plan: STart levaquin and zithromax for possible pneumonia. Watch. Start IS. (3) Anemia Status: Acute Current Visit: Yes Qualifiers: Anemia type: unspecified type Qualified Code(s): D64.9 - Anemia, unspecified (4) Hypotension Status: Acute Current Visit: Yes Qualifiers: Hypotension type: orthostatic hypotension Qualified Code(s): I95.1 - Orthostatic hypotension
[2018-11-17] MEDS ORDERED: FUROSEMIDE 40 MG/4 ML VIAL IVP ONE (08:41)
[2018-11-17] MEDS ORDERED: IRON SUCROSE COMPLEX 20 MG/ML 5ML VIAL IV ONE (08:48)
[2018-11-17] MEDS: TAMSULOSIN HCL 0.4 MG CAP.ER.24H PO SCH (09:44)
[2018-11-17] MEDS: oxyCODONE/ACETAMINOPHEN 5/325 TABLET PO PRN ×2 (09:44→17:33)
[2018-11-17] MEDS: GABAPENTIN 300 MG CAPSULE PO SCH ×3 (09:44→17:33)
[2018-11-17] MEDS: APIXABAN 2.5 MG TABLET PO SCH ×2 (09:44→20:32)
[2018-11-17] MEDS: CEPHALEXIN 250 MG CAPSULE PO SCH (09:45)
[2018-11-17] MEDS: HYDROCHLOROTHIAZIDE 25 MG TABLET PO SCH (09:45)
[2018-11-17] MEDS: METOPROLOL TARTRATE 25 MG TABLET PO SCH ×2 (09:45→20:27)
[2018-11-17] MEDS: LEVOTHYROXINE SODIUM 112 MCG PO SCH (09:46)
[2018-11-17] MEDS: METOPROLOL SUCCINATE 25 MG PO SCH (09:46)
[2018-11-17] MEDS: BUDESONIDE 0.5MG/2ML AMPUL.NEB NEB SCH ×2 (09:50→20:35)
[2018-11-17 09:57] LABS: MEAN CORPUSCULAR HEMOGLOBIN 32.3 pg (28.0-34.0)
--- NOTE | 2018-11-17 10:30 | Diagnostic Imaging Report ---
RADHA RANDHAWA [facility] [id number] [facility], [facility] [address] [address] Report Submission Date: Nov 17, 2018 10:01:42 AM DEPORTATION EXAMINER Patient Study Name: KEILA WARNER Date: Nov 17, 2018 8:49:41 AM DEPORTATION EXAMINER MRN: [id number] Modality Type: DX Gender: M Description: : [birth year] Institution: [facility] Physician: RADHA RANDHAWA Chest two views History: Dyspnea Findings: Scattered calcified pleural plaques, aortic atherosclerosis, and bilateral peripheral interstitial infiltrate or fibrosis are observed. Heart size is normal. There is no confluent airspace infiltrate or pleural effusion. 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 2. Peripheral interstitial infiltrate versus fibrosis. Electronically signed on Nov 17, 2018 10:01:42 AM DEPORTATION EXAMINER by: Keshawn MONSALVE
[2018-11-17] MEDS: 0.9 % SODIUM CHLORIDE 1,000 ML IV SCH (10:46)
[2018-11-17] MEDS: IRON SUCROSE COMPLEX 20 MG/ML 5ML VIAL IV SCH ×2 (10:52→11:51)
[2018-11-17] MEDS: INSULIN REGULAR HUMAN 80 UNIT SQ SCH (12:05)
[2018-11-17] MEDS ORDERED: LEVOFLOXACIN 500MG/D5W 100ML 100 ML IV ONE (13:29)
[2018-11-17] MEDS: LEVOFLOXACIN 500MG/D5W 100ML 500 MG in PREMIX BAG 1 BAG IV SCH (13:53)
[2018-11-17] MEDS ORDERED: 0.9 % SODIUM CHLORIDE 250 ML IV ONE (14:42)
[2018-11-17] MEDS ORDERED: AZITHROMYCIN 500 MG VIAL IV ONE (14:42)
[2018-11-17] MEDS: AZITHROMYCIN 500 MG in 0.9 % SODIUM CHLORIDE 250 ML IV SCH (14:49)
[2018-11-17] MEDS: INSULIN REGULAR HUMAN 60 UNIT SQ SCH (17:34)
[2018-11-17] MEDS: ALPRAZOLAM 0.5 MG TABLET PO PRN (20:33)
[2018-11-18] MEDS: IPRATROPIUM/ALBUTEROL SULFATE 3 ML AMPUL.NEB NEB PRN (02:20)
[2018-11-18] MEDS: oxyCODONE/ACETAMINOPHEN 5/325 TABLET PO PRN ×3 (05:18→21:36)
[2018-11-18] MEDS ORDERED: METOPROLOL TARTRATE 50 MG TABLET ONE (05:55)
[2018-11-18] MEDS: LEVOTHYROXINE SODIUM 100 MCG TABLET PO SCH (06:01)
[2018-11-18] MEDS: INSULIN REGULAR HUMAN 100 UNIT SQ SCH (08:09)
[2018-11-18] MEDS ORDERED: IRON SUCROSE COMPLEX 20 MG/ML 5ML VIAL IV ONE (08:48)
[2018-11-18] MEDS ORDERED: LEVOFLOXACIN 500MG/D5W 100ML 100 ML IV ONE (08:55)
[2018-11-18] MEDS: LEVOFLOXACIN 500MG/D5W 100ML 500 MG in PREMIX BAG 1 BAG IV SCH (09:33)
[2018-11-18] MEDS: APIXABAN 2.5 MG TABLET PO SCH ×2 (09:36→20:21)
[2018-11-18] MEDS: TAMSULOSIN HCL 0.4 MG CAP.ER.24H PO SCH (09:36)
[2018-11-18] MEDS: CEPHALEXIN 250 MG CAPSULE PO SCH (09:36)
[2018-11-18] MEDS: HYDROCHLOROTHIAZIDE 25 MG TABLET PO SCH (09:37)
[2018-11-18] MEDS: GABAPENTIN 300 MG CAPSULE PO SCH ×3 (09:37→17:47)
[2018-11-18] MEDS: METOPROLOL TARTRATE 25 MG TABLET PO SCH ×2 (09:37→20:21)
[2018-11-18] MEDS: BUDESONIDE 0.5MG/2ML AMPUL.NEB NEB SCH ×2 (09:40→20:35)
[2018-11-18] MEDS: IRON SUCROSE COMPLEX 20 MG/ML 5ML VIAL IV SCH (12:00)
[2018-11-18] MEDS: INSULIN REGULAR HUMAN 80 UNIT SQ SCH (12:05)
[2018-11-18] MEDS ORDERED: AZITHROMYCIN 500 MG VIAL IV ONE (13:00)
[2018-11-18] MEDS ORDERED: 0.9 % SODIUM CHLORIDE 250 ML IV ONE (13:01)
[2018-11-18] MEDS: AZITHROMYCIN 500 MG in 0.9 % SODIUM CHLORIDE 250 ML IV SCH (13:10)
[2018-11-18] MEDS: INSULIN REGULAR HUMAN 60 UNIT SQ SCH (17:05)
--- NOTE | 2018-11-18 17:23 | Inpatient Progress Note ---
Subjective - Required Recertification Statement I anticipate X number of days because-include discharge plan: 2 - Review of Systems Subjective: Patient feels some better. Today is his birthday. Sad he didn't get to have his alliance party. Appetite not much. He feels since he got his knee braces he'll be able to walk. Objective - Exam Vitals and I&O: Vital Signs Temp 97.8 F 11/18/18 14:00 Pulse 81 11/18/18 15:58 Resp 24 11/18/18 14:00 BP 116/60 11/18/18 14:00 Pulse Ox 94 11/18/18 17:13 Intake & Output 11/17/18 11/18/18 11/18/18 23:59 11:59 23:59 Intake Total 550 1200 385 Output Total 600 750 250 Balance -50 450 135 Intake: IV 450 Right Lower Forearm 350 right forarm 100 Oral 100 1200 385 Output: Urine 600 750 250 Other: Voiding Method Urinal Urinal Bedside Commode # Voids 2 # Bowel Movements 0 General: Alert, Oriented to Person, Oriented to Place, Oriented to Time, Cooperative Lungs: Rhonchi Cardiovascular: Regular rate - Results Results: Laboratory Results WBC 6.80 K/ul (4.00-12.00) 11/18/18 05:30 RBC 2.73 M/ul (3.90-5.20) L 11/18/18 05:30 Hgb 8.7 g/dL (12.0-18.0) L 11/18/18 05:30 Hct 26.9 % (37.0-53.0) L 11/18/18 05:30 MCV 99.0 fl (80.0-100.0) 11/18/18 05:30 MCH 32.0 pg (28.0-34.0) 11/18/18 05:30 MCHC 32.5 g/dL (30.0-36.0) 11/18/18 05:30 RDW 12.5 % (11.3-14.3) 11/18/18 05:30 Plt Count 193 K/mm3 (130-400) 11/18/18 05:30 Neut % (Auto) 68.4 % (39.0-79.0) 11/16/18 07:50 Lymph % (Auto) 21.9 % (16.0-50.0) 11/16/18 07:50 [place] % (Auto) 7.6 % (0.0-11.0) 11/16/18 07:50 Eos % (Auto) 1.8 % (0.0-6.8) 11/16/18 07:50 Baso % (Auto) 0.3 (0.0-1.5) 11/16/18 07:50 Neut # (Auto) 4.4 # k/uL (1.4-7.7) 11/16/18 07:50 Lymph # (Auto) 1.4 # k/uL (0.6-4.0) 11/16/18 07:50 [place] # (Auto) 0.5 # k/uL (0.0-0.9) 11/16/18 07:50 Eos # (Auto) 0.1 # k/uL (0.0-0.6) 11/16/18 07:50 Baso # (Auto) 0.0 # k/uL (0.0-0.5) 11/16/18 07:50 Sodium 136 mmol/L (136-145) 11/17/18 05:40 Potassium 4.2 mmol/L (3.5-5.1) 11/17/18 05:40 Chloride 102 mmol/L (98-107) 11/17/18 05:40 Carbon Dioxide 32 mmol/L (22-30) H 11/17/18 05:40 BUN 31 mg/dL (9-20) H 11/17/18 05:40 Creatinine 1.21 mg/dL (0.66-1.25) 11/17/18 05:40 Estimated Creat Clear 73 11/17/18 05:40 Est GFR ( Amer) > 60 (60-) 11/17/18 05:40 Est GFR (Non-Af Amer) > 60 (60-) 11/17/18 05:40 Glucose 118 mg/dL (74-106) H 11/17/18 05:40 Calcium 8.4 mg/dL (8.4-10.2) 11/17/18 05:40 Iron (send out) 12 ug/dL (59-158) L 11/16/18 07:50 Total Bilirubin 0.2 mg/dL (0.2-1.3) 11/14/18 21:45 AST 59 U/L (15-46) H 11/14/18 21:45 ALT 22 U/L (13-69) 11/14/18 21:45 Alkaline Phosphatase 99 U/L (38-126) 11/14/18 21:45 NT-Pro-B Natriuret Pep 582.3 pg/mL (15.0-450.0) H 11/15/18 18:05 Total Protein 6.1 g/dL (6.3-8.2) L 11/14/18 21:45 Albumin 3.3 g/dL (3.5-5.0) L 11/14/18 21:45 Vitamin B12 1068 pg/mL (211-946) H 11/16/18 07:50 Folate 15.8 ng/mL (>4.50) 11/16/18 07:50 Stool Guaiac Test Negative (NEGATIVE) 11/15/18 Unknown Assessment/Plan - Assessment/Plan (1) Anemia Status: Acute Current Visit: Yes Qualifiers: Anemia type: unspecified type Qualified Code(s): D64.9 - Anemia, unspecified Plan: Iron was low - patient given IV iron x 3 doses. (2) Hypotension Status: Acute Current Visit: Yes Qualifiers: Hypotension type: orthostatic hypotension Qualified Code(s): I95.1 - Orthostatic hypotension (3) Renal failure, acute on chronic Status: Acute Current Visit: Yes Qualifiers: Acute renal failure type: unspecified Chronic kidney disease stage: stage 3 (moderate) Qualified Code(s): N17.9 - Acute kidney failure, unspecified; N18.3 - Chronic kidney disease, stage 3 (moderate) (4) Fall Status: Acute Current Visit: Yes Qualifiers: Encounter type: sequela Qualified Code(s): W19.XXXS - Unspecified fall, sequela (5) Diabetes mellitus Status: Acute Current Visit: Yes Qualifiers: Diabetes mellitus type: type 2 Diabetes mellitus terminal gauger insulin use: with group home use Diabetes mellitus complication status: without complication Qualified Code(s): E11.9 - Type 2 diabetes mellitus without complications; Z79.4 - [facility] (current) use of insulin
[2018-11-18] MEDS: ALPRAZOLAM 0.5 MG TABLET PO PRN (20:21)
[2018-11-19] MEDS: oxyCODONE/ACETAMINOPHEN 5/325 TABLET PO PRN ×2 (05:47→13:40)
[2018-11-19] MEDS: LEVOTHYROXINE SODIUM 100 MCG TABLET PO SCH (05:47)
[2018-11-19 07:55] LABS: MEAN CORPUSCULAR HEMOGLOBIN 32.1 pg (28.0-34.0)
[2018-11-19] MEDS ORDERED: LEVOFLOXACIN 500MG/D5W 100ML 100 ML IV ONE (08:20)
[2018-11-19] MEDS: LEVOFLOXACIN 500MG/D5W 100ML 500 MG in PREMIX BAG 1 BAG IV SCH (08:34)
[2018-11-19] MEDS: CEPHALEXIN 250 MG CAPSULE PO SCH (08:35)
[2018-11-19] MEDS: METOPROLOL TARTRATE 25 MG TABLET PO SCH (08:35)
[2018-11-19] MEDS: HYDROCHLOROTHIAZIDE 25 MG TABLET PO SCH (08:36)
[2018-11-19] MEDS: TAMSULOSIN HCL 0.4 MG CAP.ER.24H PO SCH (08:36)
[2018-11-19] MEDS: GABAPENTIN 300 MG CAPSULE PO SCH ×2 (08:36→11:55)
[2018-11-19] MEDS: APIXABAN 2.5 MG TABLET PO SCH (08:36)
[2018-11-19] MEDS: INSULIN REGULAR HUMAN 100 UNIT SQ SCH (08:39)
[2018-11-19] MEDS: BUDESONIDE 0.5MG/2ML AMPUL.NEB NEB SCH (09:48)
[2018-11-19] MEDS: IRON SUCROSE COMPLEX 20 MG/ML 5ML VIAL IV SCH (11:02)
[2018-11-19] MEDS ORDERED: INSULIN REGULAR HUMAN 30 UNIT SQ SCH (11:30)
[2018-11-19] MEDS: AZITHROMYCIN 500 MG in 0.9 % SODIUM CHLORIDE 250 ML IV SCH (11:34)
[2018-11-19 12:18] VITALS: BP 137/57
--- NOTE | 2018-11-19 12:21 | Discharge Summary ---
Discharge Summary - Discharge Sumary History of Present Illness: Patient was admitted observation after ER provider called me to say patient had come in with a fall out of bed and sustained a laceration of his lower leg. AFter is was repaired, he got up to urinate and passed out. BP was in the 50's. AFter an IV bolus it increased to 120's. However patient was too weak to go home yet. Upon my arrival, I reviewed his record. In fact he had a syncopal episode in the ambulance and in the ER. HGB was 8.4. Cr was 2.62. Patient told me he was at the CT a day or two before and "labs were normal." I called and his HGB was 10 and Cr 1.6. He had also just been released from [facility] this week also. Patient goes to the CT and sees Dr. Sy for his care. Granddaughter reports he was diagnosed with a DVT about 3 weeks ago and is on Eliquis. Condition at Discharge: Stable Home Medications: Ambulatory Orders Medication Instructions Recorded Albuterol Sulfate [Proair HFA] 2 puff IH Q6 PRN 11/15/18 Apixaban [Eliquis] 5 mg PO BID 11/15/18 Arformoterol Tartrate [Brovana 15 mcg NEB BID 11/15/18 (Nf)] Aspirin [Mane] 81 mg PO D 11/15/18 Atorvastatin Calcium 80 mg PO D 11/15/18 Budesonide [Pulmicort] 0.5 mg NEB BID 11/15/18 Cephalexin [Keflex] 500 mg PO D 11/15/18 Cholecalciferol (Vitamin D3) 1,000 unit PO BID 11/15/18 [Vitamin D3] Cyanocobalamin (Vitamin B-12) 1,000 mcg PO D 11/15/18 [Vitamin B-12] Cyanocobalamin [Vitamin B-12] 1,000 mcg IM MONTH 11/15/18 Docusate Sodium [Colace] 100 mg PO BID PRN 11/15/18 Duloxetine HCl 60 mg PO D 11/15/18 Escitalopram Oxalate [Lexapro] 5 mg PO D 11/15/18 Gabapentin 300 mg PO TID 11/15/18 Hydrochlorothiazide 12.5 mg PO D 11/15/18 Insulin Regular, Human [Humulin R 75 unit SQ 1700 11/15/18 U-500 Kwikpen] Insulin Regular, Human [Humulin R 95 unit SQ 1200 11/15/18 U-500 Kwikpen] Insulin Regular, Human [Humulin R 150 unit SQ 0730 11/15/18 U-500 Kwikpen] Ipratropium/Albuterol Sulfate 3 ml IH QID PRN 11/15/18 [Duoneb] Levothyroxine Sodium 112 mcg PO D 11/15/18 Lisinopril 5 mg PO BID 11/15/18 Metoprolol Succinate [Toprol Xl] 25 mg PO D 11/15/18 Omeprazole 20 mg PO BID 11/15/18 Ondansetron HCl Rapdis [Zofran ODT] 4 mg SL Q8 PRN 11/15/18 Pnv No.121/Iron/Folic Acid 1 tab PO D 11/15/18 [ Multivitamin Tablet] Potassium Chloride 10 meq PO D 11/15/18 Tamsulosin HCl 0.4 mg PO D 11/15/18 Torsemide 100 mg PO D 11/15/18 Apixaban [Eliquis] 5 mg PO BID tablet 11/19/18 Levofloxacin [Levaquin] 500 mg PO QDAY #7 tablet 11/19/18 Consultations this Visit: None Procedures this Visit: None Allergies/Adverse Reactions: Allergies Allergy/AdvReac Type Severity Reaction Status Date / Time Iodinated Contrast- Oral and Allergy Mild Verified 11/14/18 22:41 IV Dye [IV Dye, Iodine Containing Contrast ] enoxaparin sodium Allergy Unknown Verified 11/15/18 08:30 [facility] Discharge Summary: Discharge Dx: Hypoxia Pneumonia Iron deficient anemia Weakness. Chronic pain Disposition - [facility]: Patient was admitted with hypovolemia and anemia. HGB remained stable. Iron was low at 12 so patient was transfused IV venofer x 3 doses. He tolerated this well. He had some hypoxia and suspected pneumonia. He was treated with levaquin and zithromax. Patient was entirely too weak to return home. He was transferred to [facility]. Eliquis continued given guiac negative stool and recent DVT. HBg remained stable.
== END 2018-11-19 14:05 | DRG 195 ==
LOC: ED 20:32 → SOUTH 11-15 00:14 → OBSVTOIN 11-15 00:14
PROVIDERS: ADMIT Family Medicine; ATTEND Family Medicine
DX: J18.9 Pneumonia, unspecified organism (principal); S81.811A Laceration without foreign body, right lower leg, initial encounter; E11.22 Type 2 diabetes mellitus with diabetic chronic kidney disease; N18.3 Chronic kidney disease, stage 3 (moderate); J44.9 Chronic obstructive pulmonary disease, unspecified; E03.9 Hypothyroidism, unspecified; R53.1 Weakness; W18.09XA Striking against other object with subsequent fall, initial encounter; Y93.89 Activity, other specified; Y92.099 Unspecified place in other non-institutional residence as the place of occurrence of the external cause; Z86.718 Personal history of other venous thrombosis and embolism; Z79.4 Long term (current) use of insulin
CPT/HCPCS: 36415; 71045; 71046; 80048; 80053; 82270; 82608; 82746; 83540; 83880; 85025; 85027; 94640; 94760; 96365; 99223; 99231; 99232; 99238; 99285; J0456; J1756; J1940; J1956; J2001; J7050; J7626; A9270-GY; J7030; S1016

== ENCOUNTER 2019-06-06 07:34 | Inpatient (IN) | payer MEDICARE ==
--- NOTE | 2019-06-06 07:40 | ED Physician Documentation ---
General Adult - HISTORIAN Historian: patient - HPI Stated Complaint: hypoglycemia Chief Complaint: Altered Mental Status Onset: hours (1) Timing: better Severity: moderate Further Comments: yes (per EMS he was found in car unresponsive. Per granddaughter with him he appears to have checked his blood sugar due to supplies on table and he appears to have given himself his insulin and then she thinks he started to drive to [place] for his daily trip and that is where he was found unresponsive in the car blood sugar on arrival was 39. Granddaughter states he is usually up and around. He has had some mild increase in swelling of lower legs in last few days. She states he told her this was from an increase in peanuts he was eating. HE has no other complaints. He has a moring inhaler that usually clears what she says is every am cough and wheezing. No fever) - ROS CONST: no problems CVS/RESP: denies: chest pain, shortness of breath, cough GI/: none MS/SKIN/LYMPH: denies: rash NEURO/PSYCH: denies: headache - PAST HX Past History: hypertension Immunizations: UTD Allergies/Adverse Reactions: Allergies Allergy/AdvReac Type Severity Reaction Status Date / Time Iodinated Contrast Media Allergy Mild Verified 06/06/19 08:00 [IV Dye, Iodine Containing Contrast ] enoxaparin sodium Allergy Unknown Verified 06/06/19 08:00 [From Lovenox] Home Medications: Ambulatory Orders Medication Instructions Recorded Albuterol Sulfate [Proair HFA] 2 puff IH Q6 PRN 11/15/18 Albuterol Sulfate [Proventil Hfa] 2 puff INH PRN PRN 06/06/19 Budesonide [Pulmicort Flexhaler] 2 puff INH PRN PRN 06/06/19 Cholecalciferol [Vitamin D-3] 1 tab PO DAILY 06/06/19 Insulin Regular, Human [Humulin R 100 units SQ PM 06/06/19 U-500] Insulin Regular, Human [Humulin R 120 units SQ AM 06/06/19 U-500] Lisinopril [Zestril] 1 tab PO DAILY 06/06/19 Tamsulosin HCl 2 tab PO DAILY 06/06/19 - SOCIAL HX Smoking History: non-smoker Alcohol Use: none Drug Use: none - FAMILY HX Family History: No - VITAL SIGNS Vital Signs: Vital Signs Temp Pulse Resp BP Pulse Ox 137/57 11/19/18 12:14 - REVIEWED ASSESSMENTS Nursing Assessment Reviewed: Yes Vitals Reviewed: Yes Progress - Progress Progress: 0845: mild improvement on lung sounds post neb DG 0850: 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 He states he has an advance directive which is with his son who is also in the hospital. DG General Adult Physical Exam - PHYSICAL EXAM GENERAL APPEARANCE: no distress EENT: eye inspection normal, pharynx normal, no signs of dehydration NECK: normal inspection RESPIRATORY: chest non-tender, wheezes, rales CVS: reg rate & rhythm, heart sounds normal, equal pulses, no murmur ABDOMEN: soft, no distension BACK: normal inspection, no CVA tenderness SKIN: warm/dry EXTREMITIES: non-tender, edema (2+ mildly red lower legs bilateral ) NEURO: oriented X3, other (states he is tired. ) Discharge Clincal Impression: Pneumonia Qualifiers: Pneumonia type: aspiration pneumonia Aspiration pneumonia type: unspecified Laterality: left Lung location: lower lobe of lung Qualified Code(s): J69.0 - Pneumonitis due to inhalation of food and vomit Referrals: Prashant Sy MD [Primary Care Provider] - 2 Days Comments: admission to in care DG Condition: Fair Disposition: ADMITTED INPATIENT Decision to Admit: [id number] Date of Decison to Admit: 06/06/19 Decision Time: 08:50
[2019-06-06] MEDS ORDERED: 0.9 % SODIUM CHLORIDE 1,000 ML IV ONE ×2 (07:41→09:11)
[2019-06-06] MEDS ORDERED: FUROSEMIDE 40 MG/4 ML VIAL ONE (07:43)
[2019-06-06] MEDS ORDERED: FUROSEMIDE 20 MG/2 ML VIAL IVP ONE (07:46)
[2019-06-06] MEDS: IPRATROPIUM/ALBUTEROL SULFATE 3 ML AMPUL.NEB NEB ONE ×2 (07:55→08:10)
[2019-06-06 07:56] LABS: BASOPHILS % 0.3 % (0.0-1.5); NEUTROPHILS # 5.1 # k/uL (1.4-7.7)
[2019-06-06] MEDS ORDERED: DEXTROSE 5 % IN WATER 100 ML IV.SOLN IV ONE (08:11)
--- NOTE | 2019-06-06 08:14 | Diagnostic Imaging Report ---
JAMI STEWART [facility] [address] [facility]. [address] [place], [place]. [address] Report Submission Date: Jun 06, 2019 8:08:18 AM CDT Patient Study Name: KEILA WARNER Date: Jun 06, 2019 7:39:43 AM CDT Modality Type: DX Gender: M Description: CHEST 1VIEW : 37 Institution: [facility] Physician: JAMI STEWART Exam: AP chest. History: Cough. The examination is compared to study dated November 17, 2018. Persistent perihilar and left basilar infiltrates are noted. Some pleural thickening along the left lateral chest wall is noted. Heart size is normal with atherosclerotic plaques seen in the aorta. Impression: Persistent perihilar and left basilar infiltrates. Electronically signed on Jun 06, 2019 8:08:18 AM CDT by: Jude MONSALVE
[2019-06-06] MEDS ORDERED: AZITHROMYCIN 500 MG in 0.9 % SODIUM CHLORIDE 250 ML IV ONE (09:03)
[2019-06-06] MEDS ORDERED: BUDESONIDE 0.5MG/2ML AMPUL.NEB NEB ONE (09:04)
[2019-06-06] MEDS ORDERED: DEXTROSE 5 % IN WATER 1,000 ML IV SCH ×2 (09:30→10:00)
[2019-06-06] MEDS ORDERED: IPRATROPIUM/ALBUTEROL SULFATE 3 ML AMPUL.NEB NEB PRN (09:35)
[2019-06-06 10:35] VITALS: BMI 37.6
--- NOTE | 2019-06-06 10:41 | History and Physical Report ---
History of Present Illnes - History of Present Illness Reason for Visit: Pneumonia History of Present Illness: According to ER "per EMS he was found in car unresponsive. Per granddaughter with him he appears to have checked his blood sugar due to supplies on table and he appears to have given himself his insulin and then she thinks he started to drive to [place] for his daily trip and that is where he was found unresponsive in the car blood sugar on arrival was 39. Granddaughter states he is usually up and around. He has had some mild increase in swelling of lower legs in last few days. She states he told her this was from an increase in peanuts he was eating. HE has no other complaints. He has a morning inhaler that usually clears what she says is every am cough and wheezing. No fever"- Patient was worked up in the ER and diagnosed with Pneumonia. Patient has recently changed PCP's from Dr. Sy to Dr. Mejia and was last seen in January and was doing well (records collected from Dr. Mejia). Patient follows up with Endocrinology for his diabetes every 2-3 months, He sees Dr. Amador for his CHF, diastolic dysfunction and is on torsemide. He sees Dr. Barber for pain management and is on chronic narcotis use. He sees Dr. Mike with [facility] fro steroid injections. He does fall alot and uses a walker and scooter. He wears braces and compression stockinigs. He takes Lexapro for depression- he lost his of >60 year in 2018. 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: Other (Parkinson's) Heme/Onc: Other (Chronic acquired lymphedema) Psych: Anxiety, Depression Musculoskeletal: Chronic low back pain, Osteoarthritis (Chronic leg pain) Renal/: Other (chronic renal insufficiency, obstructed uropathy) Endocrine: Diabetes ("resistant" to insulin), Hypothyroidism, obesity Dermatology: Basal cell (basal cell carcinoma fo the face) - Past Surgical History Past Surgical History: Other (Cervical fusion, colon polypectomy, eye surgery, MOHs surgery, Nasal Polyp excision) - Past Family History Mother Family History: Father Family History: - Past Social History Smoke: Quit Alcohol: None Drugs: None Lives: Alone - Health Maintenance Health Maintenance: Influenza Vaccine, Pneumococcal Vaccine Influenza Vaccine: Current for this Influenza Season Pneumonia Vaccine: Yes Resuscitation Status: Resusciation Status Resuscitation Status Do Not Resuscitate Review of Systems - Review of Systems Constitutional: Weakness Eyes: negative: conjunctivae inflammation, eyelid inflammation ENT: negative: Ear Pain, Throat Pain Respiratory: Shortness of Breath, SOB with Excertion Cardiovascular: Edema Gastrointestinal: negative: Nausea, Vomiting Genitourinary: negative: Dysuria Musculoskeletal: Neck Pain, Back Pain Skin: negative: Rash Neurological: Weakness, Confusion - Medications/Allergies Allergies/Adverse Reactions: Allergies Allergy/AdvReac Type Severity Reaction Status Date / Time Iodinated Contrast Media Allergy Mild Verified 06/06/19 09:29 [IV Dye, Iodine Containing Contrast ] enoxaparin sodium Allergy Unknown Verified 06/06/19 09:29 [From Lovenox] Home Medications: Home Medications Albuterol Sulfate [Proventil Hfa] 2 puff INH PRN PRN 06/06/19 Budesonide [Pulmicort Flexhaler] 2 puff INH PRN PRN 06/06/19 Cholecalciferol [Vitamin D-3] 1 tab PO DAILY 06/06/19 Insulin Regular, Human [Humulin R U-500] 100 units SQ PM 06/06/19 Insulin Regular, Human [Humulin R U-500] 120 units SQ AM 06/06/19 Lisinopril [Zestril] 1 tab PO DAILY 06/06/19 Tamsulosin HCl 2 tab PO DAILY 06/06/19 Current Inpatient Medications: Current Inpatient Medications Aspirin (Mane) 81 mg PO DAILY [facility] Stop: 07/07/19 08:59 Atorvastatin Calcium (Lipitor) 80 mg PO HS [facility] Stop: 07/06/19 20:59 Budesonide (Pulmicort) 0.5 mg NEB BID [facility] Stop: 07/06/19 09:59 Docusate Sodium (Colace) 100 mg PO BID [facility] Stop: 07/06/19 09:59 Duloxetine HCl (Cymbalta) 60 mg PO HS [facility] Stop: 07/06/19 20:59 Escitalopram Oxalate (Lexapro) 5 mg PO DAILY [facility] Stop: 07/06/19 09:59 Gabapentin (Neurontin) 300 mg PO TID [facility] Stop: 07/06/19 12:59 Ceftriaxone Sodium 1 gm/ (Sodium Chloride) 50 mls @ 100 mls/hr IV DAILY [facility] Stop: 07/06/19 09:59 Sodium Chloride (Normal Saline) 1,000 mls @ 100 mls/hr IV Q10H [facility] Stop: 07/06/19 09:44 Azithromycin 500 mg/ Sodium (Chloride) 250 mls @ 250 mls/hr IV Q24H [facility] Stop: 06/10/19 10:59 Dextrose/Water (D5w) 1,000 mls @ 125 mls/hr IV 1T [facility] Stop: 07/06/19 09:59 Insulin Human Regular (Novolin R) 0 unit [facility]; Protocol Stop: 07/06/19 11:59 Isosorbide Mononitrate (Imdur) 30 mg PO DAILY [facility] Stop: 07/07/19 08:59 Levothyroxine Sodium (Synthroid) 112 mcg PO 0700 [facility] Stop: 07/07/19 06:59 Methylprednisolone Sodium Succinate (Solu-Medrol) 125 mg IVP DAILY [facility] Stop: 07/06/19 09:59 Miscellaneous (Chem Sticks) 1 each [facility] Stop: 07/06/19 11:59 Pantoprazole Sodium (Protonix) 40 mg PO 0700 [facility] Stop: 07/07/19 06:59 Tamsulosin HCl (Flomax) 0.8 mg PO DAILY [facility] Stop: 07/06/19 09:59 Exam - Exam Vital Signs: Vital Signs (72 hours) 06/06/19 06/06/19 06/06/19 07:34 07:40 08:40 Temperature Pulse Rate 56 L 51 L Pulse Rate [ 55 L Left Pulse ox] Pulse Rate [ Left] Respiratory 25 H Rate Blood Pressure 100/40 [Left Arm] O2 Sat by Pulse 83 L Oximetry 06/06/19 06/06/19 06/06/19 09:40 10:00 10:30 Temperature 96.7 F L 96.7 F L Pulse Rate 53 L Pulse Rate [ Left Pulse ox] Pulse Rate [ 69 69 Left] Respiratory 20 20 Rate Blood Pressure 152/73 152/73 [Left Arm] O2 Sat by Pulse 97 97 Oximetry General: Alert, Oriented to Person, Oriented to Place, Moderate distress, Morbidly Obese HEENT: Atraumatic, PERRLA Neck: Normal Range of Motion Carotids: No bruit Lungs: Rhonchi Cardiovascular: Regular rate, Normal S1, Normal S2 Peripheral Edema: Generalized edema/lymphadema Peripheral Pulses: 1+ Abdomen: Normal bowel sounds Integumentary: Pale Extremities: No cyanosis Neurological: Generalized Weakness Psych/Mental Status: Other (Patient still not feeling well- he is alert but having difficulty communicating thoughts- slow thought process) - Laboratory Results Laboratory Results: Laboratory Results 06/06/19 06/06/19 06/06/19 07:52 07:52 07:52 WBC 7.20 RBC 3.12 L Hgb 10.2 L Hct 30.9 L MCV 99.0 MCH 32.7 MCHC 33.0 RDW 12.1 Plt Count 194 Neut % (Auto) 70.4 Lymph % (Auto) 16.0 [place] % (Auto) 6.0 Eos % (Auto) 7.3 H Baso % (Auto) 0.3 Neut # (Auto) 5.1 Lymph # (Auto) 1.2 [place] # (Auto) 0.4 Eos # (Auto) 0.5 Baso # (Auto) 0.0 Sodium 140 Potassium 3.7 Chloride 102 Carbon Dioxide 30 Anion Gap 11.7 BUN 41 H Creatinine 1.67 H Estimated Creat Clear 54 Est GFR ( Amer) 51 L Est GFR (Non-Af Amer) 42 L Glucose 131 H Lactate Calcium 8.7 Total Bilirubin 0.1 L AST 38 ALT 11 L Alkaline Phosphatase 83 NT-Pro-B Natriuret Pep 576.3 H Total Protein 6.9 Albumin 3.7 06/06/19 07:52 WBC RBC Hgb Hct MCV MCH MCHC RDW Plt Count Neut % (Auto) Lymph % (Auto) [place] % (Auto) Eos % (Auto) Baso % (Auto) Neut # (Auto) Lymph # (Auto) [place] # (Auto) Eos # (Auto) Baso # (Auto) Sodium Potassium Chloride Carbon Dioxide Anion Gap BUN Creatinine Estimated Creat Clear Est GFR ( Amer) Est GFR (Non-Af Amer) Glucose Lactate 1.6 Calcium Total Bilirubin AST ALT Alkaline Phosphatase NT-Pro-B Natriuret Pep Total Protein Albumin Assessment/Plan - Assessment/Plan (1) COPD (chronic obstructive pulmonary disease) Status: Acute Current Visit: Yes Plan: Patient will continue to be treated for Pneumonia; we will give scheduled nebulizer treatments, supplemental oxygen. (2) Arthritis Status: Acute Current Visit: Yes Plan: Will hold pain medication at this time d/t mild confusion and resp. illness; once patient is more alert and oriented and stable we can continue pain medication as prescribed. (3) Bilateral lower extremity edema Status: Acute Current Visit: Yes Plan: Patient will wear SCDs while in bed; he would like to continue to wear his knee braces for support. He states that the swelling in his lower extremities is chronic in nature. We will monitor for worsening of swelling considering he is getting IVFs; he has finished a regimen of Eliquis for DVTs- he is currently on ASA- he is allergic to Lovenox- we will get PT/OT in to evaluate patient so he will be up and moving as tolerated. (4) Hypertension Status: Acute Current Visit: Yes Qualifiers: Hypertension type: essential hypertension Qualified Code(s): I10 - Essential (primary) hypertension Plan: Blood pressures are stable- we will continue patient on home medications and treatment plan; VS will be checked every 4 hours and Prn (5) Obstructive sleep apnea Status: Acute Current Visit: Yes Plan: Patient is normally on bipap- we will monitor oxygen saturations frequently; patient will have scheduled breathing treatments (6) Pneumonia Status: Acute Current Visit: Yes Qualifiers: Pneumonia type: aspiration pneumonia Aspiration pneumonia type: unspecified Laterality: left Lung location: lower lobe of lung Qualified Code(s): J69.0 - Pneumonitis due to inhalation of food and vomit Plan: Will continue with IV antibiotics, duonebs every 4hr, will recheck labs and xray in the morning- will add incentive spirometer to treatment; will continue on home nebulizers (7) Diabetes mellitus Status: Acute Current Visit: No Qualifiers: Diabetes mellitus type: type 2 Diabetes mellitus intermediate designer insulin use: with intermediate designer use Diabetes mellitus complication status: without complication Qualified Code(s): E11.9 - Type 2 diabetes mellitus without complications; 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 We will continue to keep patient on insulin and monitor blood sugars closely. (8) Chronic renal impairment Status: Acute Current Visit: Yes Plan: Patient see's Nephrology at the [facility]- we will continue with home medications- however, we will continue IV hydration at this time and re-evaluate this evening once patient is adequately hydrated. VTE Assessment - RISK FACTOR SCORE VTE RISK FACTOR SCORES: AGE OVER 60 YEARS, ACUTE INFECTION OTHER THEN SEPSIS, OBESITY, CONGESTIVE HEART FAILURE OR MYOCARDIAL INFARCTION - RISK VTE HIGH RISK: SCORE OF 3-4 (RISK PROXIMAL DVT 4-8%) PROPHYLAXIS NEEDED (all ergic to lovenox, he is on aspirin, SCDs while in bed, PT/OT to get up and moving)
[2019-06-06] MEDS: ESCITALOPRAM OXALATE 10 MG TABLET PO SCH (11:36)
[2019-06-06] MEDS: DOCUSATE SODIUM 100 MG CAPSULE PO SCH ×2 (11:36→20:32)
[2019-06-06] MEDS: TAMSULOSIN HCL 0.4 MG CAP.ER.24H PO SCH (11:37)
[2019-06-06] MEDS: AZITHROMYCIN 500 MG in 0.9 % SODIUM CHLORIDE 250 ML IV SCH (11:38)
[2019-06-06] MEDS: methylPREDNISolone SOD SUCC 125 MG/2 ML VIAL IVP SCH (11:38)
[2019-06-06] MEDS: cefTRIAXone SODIUM 1 GM in 0.9 % SODIUM CHLORIDE 50 ML IV SCH (11:39)
[2019-06-06] MEDS: BUDESONIDE 0.5MG/2ML AMPUL.NEB NEB SCH ×2 (11:41→21:23)
[2019-06-06] MEDS: 0.9 % SODIUM CHLORIDE 1,000 ML IV SCH ×2 (12:09→22:19)
[2019-06-06] MEDS: INSULIN REGULAR, HUMAN 100 UNIT/ML 10ML VIAL SQ SCH ×3 (12:30→20:57)
[2019-06-06] MEDS: GABAPENTIN 300 MG CAPSULE PO SCH ×2 (13:54→17:08)
[2019-06-06] MEDS: IPRATROPIUM/ALBUTEROL SULFATE 3 ML AMPUL.NEB NEB SCH ×3 (13:59→20:44)
[2019-06-06 14:35] LABS: APPEARANCE,URINE CLEAR (CLEAR); COLOR,URINE YELLOW (YELLOW); OCCULT BLOOD,URINE NEGATIVE (NEGATIVE); PH URINE 5.5 (5.0 - 8.0); UROBILINOGEN URINE 0.2 Eu (0.2-1.0)
[2019-06-06] MEDS ORDERED: FUROSEMIDE 40 MG/4 ML VIAL IVP ONE (20:01)
[2019-06-06] MEDS: ATORVASTATIN CALCIUM 20 MG TABLET PO SCH (20:31)
[2019-06-06] MEDS: DULoxetine HCL 30 MG CAPSULE.DR PO SCH (20:31)
[2019-06-06] MEDS ORDERED: BUDESONIDE 0.5MG/2ML AMPUL.NEB NEB SCH (21:00)
[2019-06-07] MEDS: IPRATROPIUM/ALBUTEROL SULFATE 3 ML AMPUL.NEB NEB SCH ×6 (01:32→21:05)
[2019-06-07] MEDS: LEVOTHYROXINE SODIUM 112 MCG TABLET PO SCH (06:05)
[2019-06-07] MEDS: PANTOPRAZOLE SODIUM 40 MG TABLET.DR PO SCH (06:05)
--- NOTE | 2019-06-07 06:49 | Inpatient Progress Note ---
Subjective - Required Recertification Statement I anticipate X number of days because-include discharge plan: 3 - Review of Systems Events since last encounter: Received a call from nursing last night around that patient was having some increased shortness of breath and increased swelling to the lower extremities. He was also very uncomfortable c/o severe back and leg discomfort- he was requesting his pain meds. Order for IV lasix 40 mg now and repeat in the a.m. (today); stop fluids, labs and repeat CXR this morning and may give home med as directed. Implemented home insulin today due to insulin resistance- blood sugar this morning >300. Received call from nursing and blood sugar after lunch was >500. Patients bedside drawer checked and handfuls of milky ways were noted. Unsure of who is bringing in. Will give 10 units of regular insulin and recheck blood sugar. General: Denies: Chills, Night Sweats HEENT: Denies: Head Aches, Dysphasia Pulmonary: Dyspnea, Cough Cardiovascular: Paroxysmal Noc. Dyspnea, Edema. Denies: Chest Pain Gastrointestinal: Denies: Nausea, Vomiting, Abdominal Pain Genitourinary: Other (Patient has had quite a bit of urine output since IV lasix). Denies: Dysuria Musculoskeletal: Back Pain, Leg Pain (chronic) Neurological: Weakness Objective - Exam Vitals and I&O: Vital Signs Temp 97.7 F 06/07/19 06:00 Pulse 55 L 06/07/19 06:00 Resp 22 06/07/19 06:00 BP 134/62 06/07/19 06:00 Pulse Ox 96 06/07/19 06:00 Intake & Output 06/06/19 06/06/19 06/07/19 11:59 23:59 11:59 Intake Total 785 925 Output Total 1150 800 Balance -365 125 Weight 112.264 kg 115.666 kg Intake: Oral 785 925 Output: Urine 1150 800 Other: Voiding Method Bedside Commode Bedside Commode # Bowel Movements 1 General: Alert, Oriented to Person, Oriented to Place, Oriented to Time, Cooperative, Mild distress, Morbidly Obese HEENT: Atraumatic, PERRLA, EOMI, Mouth Mucous membr. moist/[place], Nose Mucous membr. moist/[place] Neck: Supple, +2 carotid pulse wo bruit Lungs: Normal air movement, Speaks full Sentences, Rhonchi Cardiovascular: Regular rate, Normal S1, Normal S2 Abdomen: Normal bowel sounds, Soft Extremities: Other (swelling/lymphedema to lower extemities) Skin: Warm, Dry, Pale Neurological: Strength Equal Bilat, Sensation intact, Generalized Weakness Psych/Mental Status: Mental status NL, Mood NL, Appropriate Affect - Results Results: Laboratory Results WBC 7.20 K/ul (4.00-12.00) 06/06/19 07:52 RBC 3.12 M/ul (3.90-5.20) L 06/06/19 07:52 Hgb 10.2 g/dL (12.0-18.0) L 06/06/19 07:52 Hct 30.9 % (37.0-53.0) L 06/06/19 07:52 MCV 99.0 fl (80.0-100.0) 06/06/19 07:52 MCH 32.7 pg (28.0-34.0) 06/06/19 07:52 MCHC 33.0 g/dL (30.0-36.0) 06/06/19 07:52 RDW 12.1 % (11.3-14.3) 06/06/19 07:52 Plt Count 194 K/mm3 (130-400) 06/06/19 07:52 Neut % (Auto) 70.4 % (39.0-79.0) 06/06/19 07:52 Lymph % (Auto) 16.0 % (16.0-50.0) 06/06/19 07:52 [place] % (Auto) 6.0 % (0.0-11.0) 06/06/19 07:52 Eos % (Auto) 7.3 % (0.0-6.8) H 06/06/19 07:52 Baso % (Auto) 0.3 % (0.0-1.5) 06/06/19 07:52 Neut # (Auto) 5.1 # k/uL (1.4-7.7) 06/06/19 07:52 Lymph # (Auto) 1.2 # k/uL (0.6-4.0) 06/06/19 07:52 [place] # (Auto) 0.4 # k/uL (0.0-0.9) 06/06/19 07:52 Eos # (Auto) 0.5 # k/uL (0.0-0.6) 06/06/19 07:52 Baso # (Auto) 0.0 # k/uL (0.0-0.5) 06/06/19 07:52 Sodium 140 mmol/L (137-145) 06/06/19 07:52 Potassium 3.7 mmol/L (3.5-5.1) 06/06/19 07:52 Chloride 102 mmol/L (98-107) 06/06/19 07:52 Carbon Dioxide 30 mmol/L (22-30) 06/06/19 07:52 Anion Gap 11.7 06/06/19 07:52 BUN 41 mg/dL (9-20) H 06/06/19 07:52 Creatinine 1.67 mg/dL (0.66-1.25) H 06/06/19 07:52 Estimated Creat Clear 54 06/06/19 07:52 Est GFR ( Amer) 51 (60-) L 06/06/19 07:52 Est GFR (Non-Af Amer) 42 (60-) L 06/06/19 07:52 Glucose 131 mg/dL (74-106) H 06/06/19 07:52 Lactate 1.6 U/L (0.7-2.1) 06/06/19 07:52 Calcium 8.7 mg/dL (8.4-10.2) 06/06/19 07:52 Total Bilirubin 0.1 mg/dL (0.2-1.3) L 06/06/19 07:52 AST 38 U/L (15-46) 06/06/19 07:52 ALT 11 U/L (13-69) L 06/06/19 07:52 Alkaline Phosphatase 83 U/L (38-126) 06/06/19 07:52 NT-Pro-B Natriuret Pep 576.3 pg/mL (11.1-450.0) H 06/06/19 07:52 Total Protein 6.9 g/dL (6.3-8.2) 06/06/19 07:52 Albumin 3.7 g/dL (3.5-5.0) 06/06/19 07:52 Urine Color Yellow (YELLOW) 06/06/19 14:32 Urine Appearance Clear (CLEAR) 06/06/19 14:32 Urine pH 5.5 (5.0 - 8.0) 06/06/19 14:32 Ur Specific [place] 1.010 (1.010-1.030) 06/06/19 14:32 Urine Protein Tr mg/dL (NEGATIVE) 06/06/19 14:32 Urine Ketones Negative mg/dL (NEGATIVE) 06/06/19 14:32 Urine Occult Blood Negative (NEGATIVE) 06/06/19 14:32 Urine Nitrite Negative (NEGATIVE) 06/06/19 14:32 Urine Bilirubin Negative (NEGATIVE) 06/06/19 14:32 Urine Urobilinogen 0.2 Eu (0.2-1.0) 06/06/19 14:32 Ur Leukocyte Esterase Negative (NEGATIVE) 06/06/19 14:32 Urine Glucose Trace mg/dL (NEGATIVE) 06/06/19 14:32 Assessment/Plan - Assessment/Plan (1) Bilateral lower extremity edema Status: Acute Current Visit: Yes Assessment: Edema has improved with IV lasix- patient states his legs are always swollen- states that his legs do look better- he still has knee wraps in place Plan: IV fluids discontinued; IV lasix given; will elevate legs when sitting; (2) Chronic renal impairment Status: Acute Current Visit: Yes Assessment: Patient has had greater than 2000cc out in urine; fluids stopped due to increase SOA and lower extremity edema Plan: Will give PO fluids; monitor for dehydration; will monitor lab work. (3) Hypertension Status: Acute Current Visit: Yes Qualifiers: Hypertension type: essential hypertension Qualified Code(s): I10 - Essential (primary) hypertension Assessment: Blood pressures have been stable Plan: Will continue with home medications and check regularly (4) Obstructive sleep apnea Status: Acute Current Visit: Yes Assessment: Patient did well per nursing staff during sleep; O2 sats > 92% with supplemental oxygen Plan: Will continue with supplemental oxygen as needed (5) Pneumonia Status: Acute Current Visit: Yes Qualifiers: Pneumonia type: aspiration pneumonia Aspiration pneumonia type: unspecified Laterality: left Lung location: lower lobe of lung Qualified Code(s): J69.0 - Pneumonitis due to inhalation of food and vomit Assessment: Patient has rhonchi heard throughout- oxygen saturations are > 92% with supplemental oxygen; Plan: Will continue with HFN tx's; use of incentive spirometer; duonebs every 4 hours; IV antibiotics x 2 (6) Diabetes mellitus Status: Acute Current Visit: No Qualifiers: Diabetes mellitus type: type 2 Diabetes mellitus remote computer terminal 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 insulin use: with intermediate use Diabetes mellitus complication status: without complication Qualified Code(s): E11.9 - Type 2 diabetes mellitus without complications; Z79.4 - nursing home (current) use of insulin Assessment: Blood sugars are elevated; patient was found to have a stash of Milky Ways Plan: Will continue with home insulin as directed by Recreation Therapist; discussed with patient the affects of sugar while he has an infection and blood sugars are extremely elevated; 1 time dose of IV insulin given for blood sugar >450; dc'd IV solu medrol (7) Weakness Status: Acute Current Visit: Yes Assessment: Patient states he feels a little better than he did yesterday; still very weak Plan: Will continue with PT/OT
[2019-06-07] MEDS ORDERED: FUROSEMIDE 40 MG/4 ML VIAL IVP SCH (07:00)
[2019-06-07] MEDS: INSULIN REGULAR, HUMAN 100 UNIT/ML 10ML VIAL SQ SCH ×2 (07:38→13:12)
[2019-06-07 08:14] LABS: BASOPHILS % 0.1 % (0.0-1.5)
[2019-06-07 08:25] LABS: eGFR (Non-African) 57
[2019-06-07] MEDS: cefTRIAXone SODIUM 1 GM in 0.9 % SODIUM CHLORIDE 50 ML IV SCH (08:46)
[2019-06-07] MEDS: methylPREDNISolone SOD SUCC 125 MG/2 ML VIAL IVP SCH (08:47)
[2019-06-07] MEDS: ASPIRIN 81 MG CHEW TAB PO SCH (08:52)
[2019-06-07] MEDS: DOCUSATE SODIUM 100 MG CAPSULE PO SCH ×2 (08:52→20:59)
[2019-06-07] MEDS: TAMSULOSIN HCL 0.4 MG CAP.ER.24H PO SCH (08:52)
[2019-06-07] MEDS: ESCITALOPRAM OXALATE 10 MG TABLET PO SCH (08:52)
[2019-06-07] MEDS: ISOSORBIDE MONONITRATE 30 MG TAB.ER.24H PO SCH (08:52)
[2019-06-07] MEDS: GABAPENTIN 300 MG CAPSULE PO SCH ×3 (08:52→17:57)
[2019-06-07] MEDS: BUDESONIDE 0.5MG/2ML AMPUL.NEB NEB SCH ×2 (09:17→21:04)
[2019-06-07] MEDS: AZITHROMYCIN 500 MG in 0.9 % SODIUM CHLORIDE 250 ML IV SCH (09:59)
[2019-06-07] MEDS: PATIENT OWN MED 1 EACH EACH SQ SCH ×2 (11:44→17:02)
[2019-06-07] MEDS ORDERED: INSULIN REGULAR, HUMAN 100 UNIT/ML 10ML VIAL IV ONE ×2 (13:44→16:40)
--- NOTE | 2019-06-07 14:13 | Diagnostic Imaging Report ---
ASHLEE MOISE [facility] [id number] [facility] [address] [place] [id number] Report Submission Date: Jun 07, 2019 7:44:37 AM CDT Patient Study Name: KEILA WARNER Date: Jun 07, 2019 6:42:04 AM CDT Modality Type: DX Gender: M Description: CHEST 2VIEW : 37 Institution: [facility] Physician: ASHLEE MOISE PA and lateral chest History: Pneumonia. Persistent cough PA and lateral chest dated June 07, 2019 is compared with June 06, 2019. The cardiomediastinal silhouette is unchanged. Aortic atherosclerosis is present. There is mild left basilar atelectasis. Mildly prominent interstitial markings are present scattered within the lungs bilaterally. Small but increasing regions of bilateral upper lobe infiltrate are present. There is no pleural effusion. Impression: Mildly prominent interstitial markings scattered within the lungs bilaterally, similar when compared with the prior radiograph. However, mild but increasing areas of bilateral upper lobe infiltrate are present. New, mild left basilar atelectasis. Electronically signed on Jun 07, 2019 7:44:37 AM CDT by: Lisette MONSALVE
[2019-06-07] MEDS: ATORVASTATIN CALCIUM 20 MG TABLET PO SCH (20:43)
[2019-06-07] MEDS: DULoxetine HCL 30 MG CAPSULE.DR PO SCH (20:43)
[2019-06-08] MEDS: IPRATROPIUM/ALBUTEROL SULFATE 3 ML AMPUL.NEB NEB SCH ×2 (01:19→06:08)
[2019-06-08] MEDS: LEVOTHYROXINE SODIUM 112 MCG TABLET PO SCH (06:06)
[2019-06-08] MEDS: PANTOPRAZOLE SODIUM 40 MG TABLET.DR PO SCH (06:06)
[2019-06-08] MEDS: PATIENT OWN MED 1 EACH EACH SQ SCH ×2 (07:21→16:52)
[2019-06-08] MEDS ORDERED: IPRATROPIUM/ALBUTEROL SULFATE 3 ML AMPUL.NEB NEB PRN (07:31)
--- NOTE | 2019-06-08 07:32 | Inpatient Progress Note ---
Subjective - Required Recertification Statement I anticipate X number of days because-include discharge plan: 2 - Review of Systems Events since last encounter: Patient blood sugars have been running up to 500. He has stopped eating candy at the bedside. Blood sugars are better this morning at 200 and he will receive his morning insulin. He is sitting up to the side of the bed this morning- he appears to be feeling much better. He is alert and oriented x 4. Swelling in legs has greatly improved. He still has a very harsh wet cough- He is not happy using the nebulizers but he is requesting to have his inhalers at the bedside- I am ok with this considering he is doing much better and alert. Physical therapy has been working with patient as he is unsteady. Would like continue to monitor patient- still working on getting blood sugars controlled to better treat pneumo jaclyn- he is still getting increasingly short of breath with exertion- he is still requiring supplemental oxygen and he does not use it at home- lungs are still congested- he is not able to cough anything up; Solu Medrol was dc'd due to elevated blood sugars so we are treating with IV antibiotics. General: Denies: Chills, Night Sweats HEENT: Denies: Dysphasia, Sinus Congestion Pulmonary: Dyspnea, Cough Cardiovascular: Paroxysmal Noc. Dyspnea, Edema. Denies: Chest Pain Gastrointestinal: Denies: Nausea, Vomiting, Abdominal Pain Genitourinary: Denies: Dysuria Musculoskeletal: Denies: Back Pain Neurological: Weakness Objective - Exam Vitals and I&O: Vital Signs Temp 97.5 F L 06/08/19 06:00 Pulse 76 06/08/19 06:00 Resp 20 06/08/19 06:00 BP 130/71 06/08/19 06:00 Pulse Ox 93 06/08/19 06:00 Intake & Output 06/07/19 06/07/19 06/08/19 11:59 23:59 11:59 Intake Total 1411 1124 240 Output Total 800 Balance 611 1124 240 Weight 115.666 kg 119.323 kg Intake: IV 6 6 Left Antecubital 6 Right Antecubital 6 Oral 1405 758 240 Other 360 Output: Urine 800 Other: Voiding Method Bedside Commode Bedside Commode Bedside Commode # Voids 2 1 General: Alert, Oriented to Person, Oriented to Place, Oriented to Time, Cooperative, Mild distress, Morbidly Obese HEENT: Atraumatic, PERRLA, Mouth Mucous membr. moist/[place], Nose Mucous membr. moist/[place] Neck: Supple, +2 carotid pulse wo bruit Lungs: Speaks full Sentences, Rales, Rhonchi, Accessory Muscle Use Cardiovascular: Normal S1, Normal S2, Tachycardia Abdomen: Normal bowel sounds, Soft, No tenderness Extremities: No cyanosis, Normal pulses, Other (Generalized swelling- greatly improved) Skin: [place], Warm, Dry Neurological: Normal speech, Strength Equal Bilat, Generalized Weakness Psych/Mental Status: Mental status NL, Mood NL, Appropriate Affect, Intact Judgment - Results Results: Laboratory Results WBC 7.90 K/ul (4.00-12.00) 06/07/19 07:23 RBC 3.12 M/ul (3.90-5.20) L 06/07/19 07:23 Hgb 10.3 g/dL (12.0-18.0) L 06/07/19 07:23 Hct 30.6 % (37.0-53.0) L 06/07/19 07:23 MCV 98.0 fl (80.0-100.0) 06/07/19 07:23 MCH 32.9 pg (28.0-34.0) 06/07/19 07:23 MCHC 33.5 g/dL (30.0-36.0) 06/07/19 07: RDW 12.2 % (11.3-14.3) 06/07/19 07:23 Plt Count 207 K/mm3 (130-400) 06/07/19 07:23 Neut % (Auto) 88.5 % (39.0-79.0) H 06/07/19 07:23 Lymph % (Auto) 6.5 % (16.0-50.0) L 06/07/19 07:23 [place] % (Auto) 4.1 % (0.0-11.0) 06/07/19 07:23 Eos % (Auto) 0.8 % (0.0-6.8) 06/07/19 07:23 Baso % (Auto) 0.1 % (0.0-1.5) 06/07/19 07:23 Neut # (Auto) 7.0 # k/uL (1.4-7.7) 06/07/19 07:23 Lymph # (Auto) 0.5 # k/uL (0.6-4.0) L 06/07/19 07:23 [place] # (Auto) 0.3 # k/uL (0.0-0.9) 06/07/19 07:23 Eos # (Auto) 0.1 # k/uL (0.0-0.6) 06/07/19 07:23 Baso # (Auto) 0.0 # k/uL (0.0-0.5) 06/07/19 07:23 Sodium 138 mmol/L (137-145) 06/07/19 07:23 Potassium 4.4 mmol/L (3.5-5.1) 06/07/19 07:23 Chloride 101 mmol/L (98-107) 06/07/19 07:23 Carbon Dioxide 26 mmol/L (22-30) 06/07/19 07:23 Anion Gap 15.4 06/07/19 07:23 BUN 34 mg/dL (9-20) H 06/07/19 07:23 Creatinine 1.29 mg/dL (0.66-1.25) H 06/07/19 07:23 Estimated Creat Clear 72 06/07/19 07:23 Est GFR ( Amer) > 60 (60-) 06/07/19 07:23 Est GFR (Non-Af Amer) 57 (60-) L 06/07/19 07:23 Glucose 365 mg/dL (74-106) H 06/07/19 07:23 Lactate 1.6 U/L (0.7-2.1) 06/06/19 07:52 Calcium 8.9 mg/dL (8.4-10.2) 06/07/19 07:23 Total Bilirubin 0.2 mg/dL (0.2-1.3) 06/07/19 07:23 AST 42 U/L (15-46) 06/07/19 07:23 ALT 8 U/L (13-69) L 06/07/19 07:23 Alkaline Phosphatase 80 U/L (38-126) 06/07/19 07:23 NT-Pro-B Natriuret Pep 2539.5 pg/mL (11.1-450.0) H 06/07/19 07:30 Total Protein 7.0 g/dL (6.3-8.2) 06/07/19 07:23 Albumin 3.8 g/dL (3.5-5.0) 06/07/19 07:23 Urine Color Yellow (YELLOW) 06/06/19 14:32 Urine Appearance Clear (CLEAR) 06/06/19 14:32 Urine pH 5.5 (5.0 - 8.0) 06/06/19 14:32 Ur Specific [place] 1.010 (1.010-1.030) 06/06/19 14:32 Urine Protein Tr mg/dL (NEGATIVE) 06/06/19 14:32 Urine Ketones Negative mg/dL (NEGATIVE) 06/06/19 14:32 Urine Occult Blood Negative (NEGATIVE) 06/06/19 14:32 Urine Nitrite Negative (NEGATIVE) 06/06/19 14:32 Urine Bilirubin Negative (NEGATIVE) 06/06/19 14:32 Urine Urobilinogen 0.2 Eu (0.2-1.0) 06/06/19 14:32 Ur Leukocyte Esterase Negative (NEGATIVE) 06/06/19 14:32 Urine Glucose Trace mg/dL (NEGATIVE) 06/06/19 14:32 Assessment/Plan - Assessment/Plan (1) Bilateral lower extremity edema Status: Acute Current Visit: Yes Assessment: Edema is improving- still generalized Plan: will continue to keep legs elevated and add PO Furosemide (patient is normally on Torsemide daily) (2) Chronic renal impairment Status: Acute Current Visit: Yes Assessment: Patient is voiding sufficiently, edema improving, appetite good, blood sugars coming down Plan: Will continue to monitor labs; I & O (3) Hypertension Status: Acute Current Visit: Yes Qualifiers: Hypertension type: essential hypertension Qualified Code(s): I10 - Essential (primary) hypertension Assessment: Blood pressures are stable Plan: will continue to monitor every 4 hours; and continue with home medication treatment (4) Obstructive sleep apnea Status: Acute Current Visit: Yes Assessment: Patient has been doing well; still requiring supplemental oxygen Plan: will continue to monitor resp. status; will use supplemental oxygen (5) Pneumonia Status: Acute Current Visit: Yes Qualifiers: Pneumonia type: aspiration pneumonia Aspiration pneumonia type: unspecified Laterality: left Lung location: lower lobe of lung Qualified Code(s): J69.0 - Pneumonitis due to inhalation of food and vomit Assessment: Lungs are still very coarse; he is unable to cough anything up; still requiring supplemental oxygen; still demonstrating shortness of breath with exertion. Plan: Will continue with IV antibiotics, incentive spirometry, nebulizers tx's, inhalers, physical and occupational therapy (6) Diabetes mellitus Status: Acute Current Visit: No Qualifiers: Diabetes mellitus type: type 2 Diabetes mellitus senior living insulin use: with intermodal dispatcher use Diabetes mellitus complication status: with hyperglycemia Qualified Code(s): E11.65 - Type 2 diabetes mellitus with hyperglycemia; Z79.4 - terminal gauger (current) use of insulin Assessment: Blood sugars have been running between 300-500; blood sugars are improving with a blood sugar this morning of 224 Plan: will continue with insulin; NCS diet; and patient states that he will not eat his Milky Ways (7) Weakness Status: Acute Current Visit: Yes Assessment: Patient still appears weak with exertion; alot is most likely due to shortness of breath Plan: Therapies will continue to work with patient today and tomorrow
[2019-06-08] MEDS: DOCUSATE SODIUM 100 MG CAPSULE PO SCH ×2 (08:37→20:54)
[2019-06-08] MEDS: ESCITALOPRAM OXALATE 10 MG TABLET PO SCH (08:38)
[2019-06-08] MEDS: GABAPENTIN 300 MG CAPSULE PO SCH ×3 (08:38→17:32)
[2019-06-08] MEDS: ASPIRIN 81 MG CHEW TAB PO SCH (08:38)
[2019-06-08] MEDS: ISOSORBIDE MONONITRATE 30 MG TAB.ER.24H PO SCH (08:38)
[2019-06-08] MEDS: TAMSULOSIN HCL 0.4 MG CAP.ER.24H PO SCH (08:38)
[2019-06-08] MEDS: cefTRIAXone SODIUM 1 GM in 0.9 % SODIUM CHLORIDE 50 ML IV SCH (08:39)
[2019-06-08] MEDS: FLUTICASONE/SALMETEROL 250-50 INHALER IH SCH ×2 (10:42→21:23)
[2019-06-08] MEDS: AZITHROMYCIN 500 MG in 0.9 % SODIUM CHLORIDE 250 ML IV SCH (10:44)
[2019-06-08] MEDS: PATIENT OWN MED 1 EACH EACH INH SCH ×2 (10:50→20:56)
[2019-06-08] MEDS: FUROSEMIDE 40 MG TABLET PO SCH (13:11)
[2019-06-08] MEDS: ALBUTEROL 90MCG/PUFF INHALER IH PRN (13:48)
[2019-06-08] MEDS: ATORVASTATIN CALCIUM 20 MG TABLET PO SCH (20:54)
[2019-06-08] MEDS: DULoxetine HCL 30 MG CAPSULE.DR PO SCH (20:54)
[2019-06-09] MEDS: FUROSEMIDE 40 MG TABLET PO SCH ×2 (05:02→13:28)
[2019-06-09] MEDS: PANTOPRAZOLE SODIUM 40 MG TABLET.DR PO SCH (05:02)
[2019-06-09] MEDS: LEVOTHYROXINE SODIUM 112 MCG TABLET PO SCH (05:02)
[2019-06-09] MEDS: PATIENT OWN MED 1 EACH EACH SQ SCH ×2 (07:33→16:43)
[2019-06-09] MEDS: DOCUSATE SODIUM 100 MG CAPSULE PO SCH ×2 (08:24→20:38)
[2019-06-09] MEDS: ESCITALOPRAM OXALATE 10 MG TABLET PO SCH (08:25)
[2019-06-09] MEDS: ASPIRIN 81 MG CHEW TAB PO SCH (08:25)
[2019-06-09] MEDS: GABAPENTIN 300 MG CAPSULE PO SCH ×3 (08:25→17:09)
[2019-06-09] MEDS: TAMSULOSIN HCL 0.4 MG CAP.ER.24H PO SCH (08:25)
[2019-06-09] MEDS: ISOSORBIDE MONONITRATE 30 MG TAB.ER.24H PO SCH (08:25)
[2019-06-09] MEDS: cefTRIAXone SODIUM 1 GM in 0.9 % SODIUM CHLORIDE 50 ML IV SCH (08:26)
[2019-06-09] MEDS: PATIENT OWN MED 1 EACH EACH INH SCH ×2 (08:34→21:26)
[2019-06-09] MEDS: FLUTICASONE/SALMETEROL 250-50 INHALER IH SCH ×2 (08:34→21:26)
--- NOTE | 2019-06-09 09:20 | Inpatient Progress Note ---
Objective - Exam Vitals and I&O: Vital Signs Temp 97.6 F 06/09/19 06:00 Pulse 96 H 06/09/19 06:00 Resp 20 06/09/19 06:00 BP 119/66 06/09/19 06:00 Pulse Ox 93 06/09/19 06:00 Intake & Output 06/08/19 06/08/19 06/09/19 11:59 23:59 11:59 Intake Total 219 323 9906 Output Total 600 Balance 600 720 840 Weight 119.323 kg 119.324 kg Intake: Oral 333 346 2730 Output: Urine 600 Other: Voiding Method Bedside Commode Bedside Commode Bedside Commode # Voids 1 1 2 - Results Results: Laboratory Results WBC 7.90 K/ul (4.00-12.00) 06/07/19 07:23 RBC 3.12 M/ul (3.90-5.20) L 06/07/19 07:23 Hgb 10.3 g/dL (12.0-18.0) L 06/07/19 07:23 Hct 30.6 % (37.0-53.0) L 06/07/19 07:23 MCV 98.0 fl (80.0-100.0) 06/07/19 07:23 MCH 32.9 pg (28.0-34.0) 06/07/19 07:23 MCHC 33.5 g/dL (30.0-36.0) 06/07/19 07:23 RDW 12.2 % (11.3-14.3) 06/07/19 07:23 Plt Count 207 K/mm3 (130-400) 06/07/19 07:23 Neut % (Auto) 88.5 % (39.0-79.0) H 06/07/19 07:23 Lymph % (Auto) 6.5 % (16.0-50.0) L 06/07/19 07:23 [place] % (Auto) 4.1 % (0.0-11.0) 06/07/19 07:23 Eos % (Auto) 0.8 % (0.0-6.8) 06/07/19 07:23 Baso % (Auto) 0.1 % (0.0-1.5) 06/07/19 07:23 Neut # (Auto) 7.0 # k/uL (1.4-7.7) 06/07/19 07:23 Lymph # (Auto) 0.5 # k/uL (0.6-4.0) L 06/07/19 07:23 [place] # (Auto) 0.3 # k/uL (0.0-0.9) 06/07/19 07:23 Eos # (Auto) 0.1 # k/uL (0.0-0.6) 06/07/19 07:23 Baso # (Auto) 0.0 # k/uL (0.0-0.5) 06/07/19 07:23 Sodium 138 mmol/L (137-145) 06/07/19 07:23 Potassium 4.4 mmol/L (3.5-5.1) 06/07/19 07:23 Chloride 101 mmol/L (98-107) 06/07/19 07:23 Carbon Dioxide 26 mmol/L (22-30) 06/07/19 07:23 Anion Gap 15.4 06/07/19 07:23 BUN 34 mg/dL (9-20) H 06/07/19 07:23 Creatinine 1.29 mg/dL (0.66-1.25) H 06/07/19 07:23 Estimated Creat Clear 72 06/07/19 07:23 Est GFR ( Amer) > 60 (60-) 06/07/19 07:23 Est GFR (Non-Af Amer) 57 (60-) L 06/07/19 07:23 Glucose 365 mg/dL (74-106) H 06/07/19 07:23 Lactate 1.6 U/L (0.7-2.1) 06/06/19 07:52 Calcium 8.9 mg/dL (8.4-10.2) 06/07/19 07:23 Total Bilirubin 0.2 mg/dL (0.2-1.3) 06/07/19 07:23 AST 42 U/L (15-46) 06/07/19 07:23 ALT 8 U/L (13-69) L 06/07/19 07:23 Alkaline Phosphatase 80 U/L (38-126) 06/07/19 07:23 NT-Pro-B Natriuret Pep 2539.5 pg/mL (11.1-450.0) H 06/07/19 07:30 Total Protein 7.0 g/dL (6.3-8.2) 06/07/19 07:23 Albumin 3.8 g/dL (3.5-5.0) 06/07/19 07:23 Urine Color Yellow (YELLOW) 06/06/19 14:32 Urine Appearance Clear (CLEAR) 06/06/19 14:32 Urine pH 5.5 (5.0 - 8.0) 06/06/19 14:32 Ur Specific [place] 1.010 (1.010-1.030) 06/06/19 14:32 Urine Protein Tr mg/dL (NEGATIVE) 06/06/19 14:32 Urine Ketones Negative mg/dL (NEGATIVE) 06/06/19 14:32 Urine Occult Blood Negative (NEGATIVE) 06/06/19 14:32 Urine Nitrite Negative (NEGATIVE) 06/06/19 14:32 Urine Bilirubin Negative (NEGATIVE) 06/06/19 14:32 Urine Urobilinogen 0.2 Eu (0.2-1.0) 06/06/19 14:32 Ur Leukocyte Esterase Negative (NEGATIVE) 06/06/19 14:32 Urine Glucose Trace mg/dL (NEGATIVE) 06/06/19 14:32 Assessment/Plan - Assessment/Plan (1) Bilateral lower extremity edema Status: Acute Current Visit: Yes (2) Chronic renal impairment Status: Acute Current Visit: Yes (3) Hypertension Status: Acute Current Visit: Yes Qualifiers: Hypertension type: essential hypertension Qualified Code(s): I10 - Essential (primary) hypertension (4) Obstructive sleep apnea Status: Acute Current Visit: Yes (5) Pneumonia Status: Acute Current Visit: Yes Qualifiers: Pneumonia type: aspiration pneumonia Aspiration pneumonia type: unspecified Laterality: left Lung location: lower lobe of lung Qualified Code(s): J69.0 - Pneumonitis due to inhalation of food and vomit (6) Diabetes mellitus Status: Acute Current Visit: No Qualifiers: Diabetes mellitus type: type 2 Diabetes mellitus 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
[2019-06-09] MEDS: AZITHROMYCIN 500 MG in 0.9 % SODIUM CHLORIDE 250 ML IV SCH (10:55)
[2019-06-09] MEDS: ALBUTEROL 90MCG/PUFF INHALER IH PRN (13:34)
--- NOTE | 2019-06-09 17:37 | Inpatient Progress Note ---
Subjective - Required Recertification Statement I anticipate X number of days because-include discharge plan: 1 day - Review of Systems Events since last encounter: patient seem to be doing well at this time. Patient stated her breathing status has improved and is almost back to normal. Patient continues to have a slight cough that is nonproductive. Patient denies any chest pain or chest pressure. Patient is getting up and ambulating some. Blood sugars have been stable Objective - Exam Vitals and I&O: Vital Signs Temp 98.4 F 06/09/19 14:00 Pulse 106 H 06/09/19 14:00 Resp 22 06/09/19 14:00 BP 113/70 06/09/19 14:00 Pulse Ox 93 06/09/19 14:00 Intake & Output 06/08/19 06/09/19 06/09/19 23:59 11:59 23:59 Intake Total 720 1440 360 Output Total 600 Balance 720 840 360 Weight 119.324 kg Intake: Oral 720 1440 360 Output: Urine 600 Other: Voiding Method Bedside Commode Bedside Commode # Voids 1 2 2 General: Alert, Oriented to Person, Oriented to Place, Oriented to Time, Cooperative Neck: Supple, No JVD Lungs: Normal air movement, Speaks full Sentences, Rhonchi (fe scattered) Cardiovascular: Regular rate, Normal S1, Normal S2 Abdomen: Normal bowel sounds, Soft, No tenderness Skin: Stacy, Warm Neurological: Normal speech, Strength Equal Bilat Psych/Mental Status: Mental status NL, Mood NL, Appropriate Affect, Intact Judgment - Results Results: Laboratory Results WBC 7.90 K/ul (4.00-12.00) 06/07/19 07:23 RBC 3.12 M/ul (3.90-5.20) L 06/07/19 07:23 Hgb 10.3 g/dL (12.0-18.0) L 06/07/19 07:23 Hct 30.6 % (37.0-53.0) L 06/07/19 07:23 MCV 98.0 fl (80.0-100.0) 06/07/19 07:23 MCH 32.9 pg (28.0-34.0) 06/07/19 07:23 MCHC 33.5 g/dL (30.0-36.0) 06/07/19 07:23 RDW 12.2 % (11.3-14.3) 06/07/19 07:23 Plt Count 207 K/mm3 (130-400) 06/07/19 07:23 Neut % (Auto) 88.5 % (39.0-79.0) H 06/07/19 07:23 Lymph % (Auto) 6.5 % (16.0-50.0) L 06/07/19 07:23 Summers % (Auto) 4.1 % (0.0-11.0) 06/07/19 07:23 Eos % (Auto) 0.8 % (0.0-6.8) 06/07/19 07:23 Baso % (Auto) 0.1 % (0.0-1.5) 06/07/19 07:23 Neut # (Auto) 7.0 # k/uL (1.4-7.7) 06/07/19 07:23 Lymph # (Auto) 0.5 # k/uL (0.6-4.0) L 06/07/19 07:23 Summers # (Auto) 0.3 # k/uL (0.0-0.9) 06/07/19 07:23 Eos # (Auto) 0.1 # k/uL (0.0-0.6) 06/07/19 07:23 Baso # (Auto) 0.0 # k/uL (0.0-0.5) 06/07/19 07:23 Sodium 138 mmol/L (137-145) 06/07/19 07:23 Potassium 4.4 mmol/L (3.5-5.1) 06/07/19 07:23 Chloride 101 mmol/L (98-107) 06/07/19 07:23 Carbon Dioxide 26 mmol/L (22-30) 06/07/19 07:23 Anion Gap 15.4 06/07/19 07:23 BUN 34 mg/dL (9-20) H 06/07/19 07:23 Creatinine 1.29 mg/dL (0.66-1.25) H 06/07/19 07:23 Estimated Creat Clear 72 06/07/19 07:23 Est GFR ( Amer) > 60 (60-) 06/07/19 07:23 Est GFR (Non-Af Amer) 57 (60-) L 06/07/19 07:23 Glucose 365 mg/dL (74-106) H 06/07/19 07:23 Lactate 1.6 U/L (0.7-2.1) 06/06/19 07:52 Calcium 8.9 mg/dL (8.4-10.2) 06/07/19 07:23 Total Bilirubin 0.2 mg/dL (0.2-1.3) 06/07/19 07:23 AST 42 U/L (15-46) 06/07/19 07:23 ALT 8 U/L (13-69) L 06/07/19 07:23 Alkaline Phosphatase 80 U/L (38-126) 06/07/19 07:23 NT-Pro-B Natriuret Pep 2539.5 pg/mL (11.1-450.0) H 06/07/19 07:30 Total Protein 7.0 g/dL (6.3-8.2) 06/07/19 07:23 Albumin 3.8 g/dL (3.5-5.0) 06/07/19 07:23 Urine Color Yellow (YELLOW) 06/06/19 14:32 Urine Appearance Clear (CLEAR) 06/06/19 14:32 Urine pH 5.5 (5.0 - 8.0) 06/06/19 14:32 Ur Specific [place] 1.010 (1.010-1.030) 06/06/19 14:32 Urine Protein Tr mg/dL (NEGATIVE) 06/06/19 14:32 Urine Ketones Negative mg/dL (NEGATIVE) 06/06/19 14:32 Urine Occult Blood Negative (NEGATIVE) 06/06/19 14:32 Urine Nitrite Negative (NEGATIVE) 06/06/19 14:32 Urine Bilirubin Negative (NEGATIVE) 06/06/19 14:32 Urine Urobilinogen 0.2 Eu (0.2-1.0) 06/06/19 14:32 Ur Leukocyte Esterase Negative (NEGATIVE) 06/06/19 14:32 Urine Glucose Trace mg/dL (NEGATIVE) 06/06/19 14:32 Assessment/Plan - Assessment/Plan (1) Pneumonia Status: Acute Current Visit: Yes Qualifiers: Pneumonia type: aspiration pneumonia Aspiration pneumonia type: unspecified Laterality: left Lung location: lower lobe of lung Qualified Code(s): J69.0 - Pneumonitis due to inhalation of food and vomit Assessment: Appearsto be improved at this time. Patient stated his breathing status is getting close to being back to normal. Will continue occur therapy. patient is currently on Rocephin and azithromycin. (2) COPD (chronic obstructive pulmonary disease) Status: Acute Current Visit: Yes Qualifiers: COPD type: COPD with acute exacerbation Qualified Code(s): J44.1 - Chronic obstructive pulmonary disease with (acute) exacerbation Assessment: patient does have an acute exacerbation of the COPD secondary to the pneumonia. It does seem to be improving with a pneumonia (3) Chronic renal impairment Status: Chronic Current Visit: Yes Assessment: stable (4) Hypertension Status: Chronic Current Visit: Yes Qualifiers: Hypertension type: essential hypertension Qualified Code(s): I10 - Essential (primary) hypertension Assessment: . Stable on home medications (5) Obstructive sleep apnea Status: Acute Current Visit: Yes Assessment: stable (6) Diabetes mellitus Status: Chronic Current Visit: Yes Qualifiers: Diabetes mellitus type: type 2 Diabetes mellitus terminal worker insulin use: with terminal worker use Diabetes mellitus complication status: with hyperglycemia Qualified Code(s): E11.65 - Type 2 diabetes mellitus with hyperglycemia; Z79.4 - FDC (current) use of insulin Assessment: patient blood sugars seem to be doing fairly well at this time. Patient blood sugars have been running in the 142 to 20 range. Patient is not had any further hypoglycemic episodes.
[2019-06-09] MEDS: DULoxetine HCL 30 MG CAPSULE.DR PO SCH (20:38)
[2019-06-09] MEDS: ATORVASTATIN CALCIUM 20 MG TABLET PO SCH (20:39)
[2019-06-10] MEDS: FUROSEMIDE 40 MG TABLET PO SCH (04:55)
[2019-06-10] MEDS: LEVOTHYROXINE SODIUM 112 MCG TABLET PO SCH (04:55)
[2019-06-10] MEDS: PANTOPRAZOLE SODIUM 40 MG TABLET.DR PO SCH (04:55)
--- NOTE | 2019-06-10 06:49 | Discharge Summary ---
Discharge Summary - Discharge [facility] Admission Date: 06/06/19 Discharge Date: 06/10/19 History of Present Illness: According to ER "per EMS he was found in car unresponsive. Per granddaughter with him he appears to have checked his blood sugar due to supplies on table and he appears to have given himself his insulin and then she thinks he started to drive to [place] for his daily trip and that is where he was found unresponsive in the car blood sugar on arrival was 39. Granddaughter states he is usually up and around. He has had some mild increase in swelling of lower legs in last few days. She states he told her this was from an increase in peanuts he was eating. HE has no other complaints. He has a morning inhaler that usually clears what she says is every am cough and wheezing. No fever"- Patient was worked up in the ER and diagnosed with Pneumonia. Patient has recently changed PCP's from Dr. Sy to Dr. Mejia and was last seen in January and was doing well (records collected from Dr. Mejia). Patient follows up with Endocrinology for his diabetes every 2-3 months, He sees Dr. Amador for his CHF, diastolic dysfunction and is on torsemide. He sees Dr. Barber for pain management and is on chronic narcotis use. He sees Dr. Mike with [facility] fro steroid injections. He does fall alot and uses a walker and scooter. He wears braces and compression stockinigs. He takes Lexapro for depression- he lost his of >60 year in 2018. Condition at Discharge: Stable Home Medications: Ambulatory Orders Medication Instructions Recorded Albuterol Sulfate [Proair HFA] 2 puff IH Q6 PRN 11/15/18 Albuterol Sulfate [Proventil Hfa] 2 puff INH PRN PRN 06/06/19 Budesonide [Pulmicort Flexhaler] 2 puff INH PRN PRN 06/06/19 Cholecalciferol [Vitamin D-3] 1 tab PO DAILY 06/06/19 Insulin Regular, Human [Humulin R 100 units SQ PM 06/06/19 U-500] Insulin Regular, Human [Humulin R 120 units SQ AM 06/06/19 U-500] Lisinopril [Zestril] 1 tab PO DAILY 06/06/19 Tamsulosin HCl 2 tab PO DAILY 06/06/19 Azithromycin [Zithromax] 250 mg PO DAILY #5 tablet 06/10/19 Cefuroxime Axetil [Ceftin] 250 mg PO BID #20 tablet 06/10/19 Consultations this Visit: None Procedures this Visit: None Allergies/Adverse Reactions: Allergies Allergy/AdvReac Type Severity Reaction Status Date / Time Iodinated Contrast Media Allergy Mild Verified 06/06/19 09:29 [IV Dye, Iodine Containing Contrast ] enoxaparin sodium Allergy Unknown Verified 06/06/19 09:29 [From Lovenox] Discharge Summary: Patient has done well since admission- blood sugars have stabilized- he will continue on oral antibiotics- he will continue with home meds as instructed by his specialist- He is to call and follow up with Dr. Mejia for re-evaluation. - Final Diagnosis (1) Bilateral lower extremity edema Problems: Improved- has chronic lower extremity edema Right or Left: Right (2) Chronic renal impairment Right or Left: Right (3) Hypertension Problems: Blood pressures are stable Right or Left: Right (4) Obstructive sleep apnea Problems: Stable on CPAP Right or Left: Right (5) Pneumonia Problems: Stable- patient will continue on oral antibiotics, incentive spirometer, and inhalers Right or Left: Right (6) Diabetes mellitus Problems: Patient will continue on insulin as instructed by [employer] Right or Left: Right (7) Weakness Problems: sTable- patient feeling better Right or Left: Right
[2019-06-10] MEDS: PATIENT OWN MED 1 EACH EACH SQ SCH (07:18)
[2019-06-10] MEDS: ESCITALOPRAM OXALATE 10 MG TABLET PO SCH (08:50)
[2019-06-10] MEDS: GABAPENTIN 300 MG CAPSULE PO SCH (08:50)
[2019-06-10] MEDS: ASPIRIN 81 MG CHEW TAB PO SCH (08:50)
[2019-06-10] MEDS: TAMSULOSIN HCL 0.4 MG CAP.ER.24H PO SCH (08:50)
[2019-06-10] MEDS: ISOSORBIDE MONONITRATE 30 MG TAB.ER.24H PO SCH (08:50)
[2019-06-10] MEDS: DOCUSATE SODIUM 100 MG CAPSULE PO SCH (08:50)
[2019-06-10] MEDS: PATIENT OWN MED 1 EACH EACH INH SCH (08:52)
[2019-06-10 08:55] VITALS: BP 135/80
[2019-06-10] MEDS: cefTRIAXone SODIUM 1 GM in 0.9 % SODIUM CHLORIDE 50 ML IV SCH (09:56)
== END 2019-06-10 09:30 | disposition home or self-care (01) | DRG 178 ==
LOC: ED 07:34 → SOUTH 09:05
PROVIDERS: ADMIT Nurse Practitioner Family; ATTEND Family Medicine
DX: J69.0 Pneumonitis due to inhalation of food and vomit (principal); I50.32 Chronic diastolic (congestive) heart failure; I13.0 Hypertensive heart and chronic kidney disease with heart failure and stage 1 through stage 4 chronic kidney disease, or unspecified chronic kidney disease; Z68.41 Body mass index [BMI] 40.0-44.9, adult; J44.1 Chronic obstructive pulmonary disease with (acute) exacerbation; E11.649 Type 2 diabetes mellitus with hypoglycemia without coma; F32.9 Major depressive disorder, single episode, unspecified; E11.22 Type 2 diabetes mellitus with diabetic chronic kidney disease; N18.9 Chronic kidney disease, unspecified; Z66 Do not resuscitate; G47.33 Obstructive sleep apnea (adult) (pediatric); I27.20 Pulmonary hypertension, unspecified; E11.51 Type 2 diabetes mellitus with diabetic peripheral angiopathy without gangrene; G20 Parkinson's disease; I89.0 Lymphedema, not elsewhere classified; F41.9 Anxiety disorder, unspecified; G89.29 Other chronic pain; M54.5 Low back pain; M19.90 Unspecified osteoarthritis, unspecified site; E11.65 Type 2 diabetes mellitus with hyperglycemia; E66.01 Morbid (severe) obesity due to excess calories; E88.81 Metabolic syndrome and other insulin resistance; N13.9 Obstructive and reflux uropathy, unspecified; E03.9 Hypothyroidism, unspecified; Z91.81 History of falling; Z88.8 Allergy status to other drugs, medicaments and biological substances; Z91.041 Radiographic dye allergy status; Z79.899 Other long term (current) drug therapy; Z79.4 Long term (current) use of insulin; Z63.4 Disappearance and death of family member; Z85.828 Personal history of other malignant neoplasm of skin; Z98.1 Arthrodesis status; Z86.010 Personal history of colon polyps; Z87.891 Personal history of nicotine dependence
CPT/HCPCS: 36415; 36600; 71045; 71046; 80053; 81002; 82803; 83605; 83880; 85025; 87040; 87184; 94640; 96360; 96361; 96374; 99283; 99284; J0456; J0696; J1940; J2930; J7050; J7626; J1815; J7030; J7070; S1016

== ENCOUNTER 2019-08-05 14:27 | Outpatient (CLI) | payer MEDICARE | END 2019-08-05 15:05 | LOC: LAB 14:27 | PROVIDERS: ATTEND Family Medicine | DX: I50.23 Acute on chronic systolic (congestive) heart failure (principal); J96.01 Acute respiratory failure with hypoxia; J44.1 Chronic obstructive pulmonary disease with (acute) exacerbation | CPT/HCPCS: 36415; 83880; P9603 ==